=== PATIENT | female | born 1960 | race Caucasian/White ===

== ENCOUNTER 2020-11-06 08:31 | Emergency (ER) | payer OTHER, SELFPAY ==
--- NOTE | ~2020-11-06 | XR_ITS ---
EXAMINATION: XR CHEST CLINICAL INFORMATION: Shortness of breath COMPARISON: None TECHNIQUE: 2 views of the chest were obtained. FINDINGS: There is subsegmental atelectasis versus scarring left anterior lateral base at the inferior lingula. The lungs otherwise clear. There is no pneumothorax, pleural reaction, other air space opacities, or effusion. The heart is normal in size. The vascularity is normal. The hilar and mediastinal contours and bony structures are unremarkable. XR/XR chest 2V IMPRESSION: 1. Atelectasis versus scarring inferior lingula left anterior lateral base. 2. Heart size normal. Vascularity normal. No effusion.
[2020-11-06 08:41] VITALS: BP 140/82; PULSE 70; O2SAT 95
[2020-11-06 08:53] VITALS: BP 130/61; PULSE 68; TEMP -14.4; TEMP 6; O2SAT 93; BMI 23.8
[2020-11-06] MEDS: Albuterol Sulfate (0.083%) 2.5 MG/3 ML VIAL.NEB 5 MG INHALE (10:48)
[2020-11-06] MEDS: Albuterol/Iprat 2.5/0.5MG 3 ML AMPUL.NEB INHALE (10:48)
[2020-11-06 10:50] VITALS: PULSE 64; O2SAT 96
[2020-11-06] MEDS: methylPREDNISolone Sod Succ 125 MG/2 ML VIAL IVPUSH (10:52)
[2020-11-06] MEDS: guaiFEN/Codeine SF 200/20/10ML 10 ML LIQUID PO (10:52)
[2020-11-06] MEDS: Magnesium Sulfate/H2O 2 GM/50 ML PIGGYBACK IV (10:52)
[2020-11-06 10:56] VITALS: BP 126/88; PULSE 62; O2SAT 94
[2020-11-06 11:00] LABS: MANUAL DIFF FLAG NO
[2020-11-06 11:08] LABS: Basophils Absolute Auto 0.1 X10*3/uL (0.0-0.2); Basophils Percent Auto 0.5 % (0-2); Eosinophils Absolute Auto 1.3 X10*3/uL (0.0-0.4); Eosinophils Percent Auto 10.9 % (0-4); Hematocrit 40.6 % (37-47); Hemoglobin 13.5 g/dl (12.0-16.0); Imm Gran Abs Auto 0.04 X10*3/uL (0.00-0.03); Imm Gran Pct Auto 0.3 % (0.0-0.4); Lymphocytes Absolute Auto 1.3 X10*3/uL (1.2-4.9); Lymphocytes Percent Auto 11.4 % (20-40); Mean Corpuscular HGB Conc 33.3 g/dl (31.0-35.0); Mean Corpuscular Hemoglobin 29.7 pg (27.0-33.0); Mean Corpuscular Volume 89.2 fL (80-98); Mean Platelet Volume 8.5 fL (9.4-12.3); Monocytes Absolute Auto 0.7 X10*3/uL (0.1-1.2); Monocytes Percent Auto 6.3 % (2-11); Neutrophils Absolute Auto 8.1 X10*3/uL (2.0-8.3); Neutrophils Percent Auto 70.6 % (45-73); Platelet Count 295 X10*3/uL (160-400); Red Blood Count 4.55 X10*6/uL (4.20-5.50); White Blood Count 11.5 X10*3/uL (4.8-10.8)
[2020-11-06 11:28] LABS: Anion Gap 12 (12-20); Blood Urea Nitrogen 14 mg/dL (9-16); Calcium 9.5 mg/dL (8.4-10.2); Carbon Dioxide 25 mmol/L (22-29); Chloride 107 mmol/L (96-108); Creatinine Clr Calc Pharmacy 69.3; Estimated Glomerular Filt Rate > 60; Glucose Random 114 mg/dL (60-115); Potassium 4.1 mmol/L (3.3-5.1); Sodium 140 mmol/L (135-145)
--- NOTE | 2020-11-06 11:57 | ED_ITS ---
HPI - SOB/Dyspnea General Chief Complaint: Dyspnea Stated Complaint: difficulty breathing Time Seen by Provider: 11/06/20 10:11 Source: patient Mode of arrival: ambulatory Limitations: no limitations History of Present Illness HPI Narrative: Patient history of asthma/COPD ex-smoker been feeling short of breath for long time getting worse does not have any inhaler at this time using nebulizer treatment without much relief no fever no chills cough mostly dry or slight mucopurulent phlegm no chest pain patient was saturating 93% on arrival at room air Related Data Previous Rx's Medication Instructions Recorded albuterol sulfate 90 mcg/actuation 2 puff INHALATION Q4-6H PRN #8.5 g 11/06/20 aerosol inhaler (Proventil HFA) codeine 10 mg-guaifenesin 100 mg/5 10 ml PO Q4-6H PRN #237 ml 11/06/20 mL oral liquid doxycycline hyclate 100 mg tablet 100 mg PO BID #20 tab 11/06/20 prednisone 20 mg tablet 40 mg PO DAILY #10 tab 11/06/20 Allergies Allergy/AdvReac Type Severity Reaction Status Date / Time aspirin Allergy Unknown Verified 11/06/20 09:01 fluoxetine [From Prozac] Allergy Unknown Verified 11/06/20 09:01 Review of Systems Review of Systems: Yes all other systems are reviewed and are negative PMFSH Past Medical History Medical History Asthma Depression Heart failure Social History Social History Advance Directives: No Advance Directives Information Provided: No Physical Exam Vital Signs: Vital Signs: Last Vital Signs Temp 6 F L 11/06/20 08:53 Pulse 62 11/06/20 10:56 BP 126/88 11/06/20 10:56 Pulse Ox 94 11/06/20 10:56 Oxygen Flow Rate 2 11/06/20 08:53 Body Mass Index 23.8 Appearance: Alert. Oriented X3. No acute distress. Eyes: No pallor or icterus ENT: Pharynx normal. Oral Mucosa moist Neck: Normal inspection. Neck supple. CVS: Normal heart rate and rhythm. Pulses normal. Respiratory: No respiratory distress. Equal air entry bilateral, frequent cough bilateral wheezing no crackles Abdomen: Soft and nontender. Bowel sounds are present, no mass palpable, no CVA tenderness Skin: Skin warm and dry. Normal skin color. Normal skin turgor. Extremities: No lower extremity edema. No calf tenderness Neuro: Oriented X 3. MDM - SOB/Dyspnea MDM Narrative Medical decision making narrative: Patient chronic bronchitis/asthma/COPD comes with similar complaints for increased shortness of breath and cough saturating 93-94% on room air chest x-ray negative labs stable discharge patient home on prednisone albuterol inhaler and doxycycline Differential Diagnosis Differential diagnosis: Likely acute exacerbation of chronic obstructive airways disease and asthma with exacerbation Lab Data Attestation: I reviewed the patient's lab results. Result diagrams: 11/06/20 10:46 11/06/20 10:46 Labs: Lab Results 11/06/20 11/06/20 Range/Units 10:46 10:46 WBC 11.5 H (4.8-10.8) X10*3/uL RBC 4.55 (4.20-5.50) X10*6/uL Hgb 13.5 (12.0-16.0) g/dl Hct 40.6 (37-47) % MCV 89.2 (80-98) fL MCH 29.7 (27.0-33.0) pg MCHC 33.3 (31.0-35.0) g/dl RDW 13.0 (11.0-16.0) % Plt Count 295 (160-400) X10*3/uL MPV 8.5 L (9.4-12.3) fL Immature Gran % (Auto) 0.3 (0.0-0.4) % Neut % (Auto) 70.6 (45-73) % Lymph % (Auto) 11.4 L (20-40) % [place] % (Auto) 6.3 (2-11) % Eos % (Auto) 10.9 H (0-4) % Baso % (Auto) 0.5 (0-2) % Lymph # (Auto) 1.3 (1.2-4.9) X10*3/uL [place] # (Auto) 0.7 (0.1-1.2) X10*3/uL Eos # (Auto) 1.3 H (0.0-0.4) X10*3/uL Baso # (Auto) 0.1 (0.0-0.2) X10*3/uL Abs Immat Gran (auto) 0.04 H (0.00-0.03) X10*3/uL Absolute Neuts (auto) 8.1 (2.0-8.3) X10*3/uL Absolute Nucleated RBC 0.000 (0.0-0.012) X10*3/uL Nucleated RBC % (auto) 0.0 (0.0-0.2) /100WBC Sodium 140 (135-145) mmol/L Potassium 4.1 (3.3-5.1) mmol/L Chloride 107 (96-108) mmol/L Carbon Dioxide 25 (22-29) mmol/L Anion Gap 12 (12-20) BUN 14 (9-16) mg/dL Creatinine 0.70 (0.5-1.4) mg/dL Estim Creat Clear Calc 69.3 Estimated GFR > 60 Random Glucose 114 (60-115) mg/dL Calcium 9.5 (8.4-10.2) mg/dL Discharge Plan Discharge Clinical Impression: Chronic asthmatic bronchitis Patient Disposition: Home, Self-Care Instructions: Chronic Bronchitis (ED) Additional Instructions: Take medication as prescribed and follow with PCP Prescriptions: New albuterol sulfate [Proventil HFA] 90 mcg/actuation HFA aerosol inhaler 2 puff inhalation Q4-6H PRN (Reason: shortness of breath or wheezing) Qty: 8.5 RF: 0 prednisone 20 mg tablet 40 mg PO DAILY Qty: 10 RF: 0 doxycycline hyclate 100 mg tablet 100 mg PO BID Qty: 20 RF: 0 codeine-guaifenesin 10-100 mg/5 mL liquid 10 ml PO Q4-6H PRN (Reason: cough) Qty: 237 RF: 0
== END 2020-11-06 12:51 | disposition home or self-care (01) ==
PROVIDERS: Emergency Provider Internal Medicine
DX: J44.9 Chronic obstructive pulmonary disease, unspecified (principal)
CPT/HCPCS: 36415; 71046; 80048; 85025; 94640; 94644; 96365; 96375; 99283; 99284; J2930; J3475

== ENCOUNTER 2023-07-06 22:14 | Inpatient (IN) | payer MEDICAID, SELFPAY ==
--- NOTE | ~2023-07-06 | XR_ITS ---
EXAMINATION: XR CHEST CLINICAL INFORMATION: Shortness of breath and wheezing. Rule out pneumonia. COMPARISON: None available. TECHNIQUE: Frontal view of the chest was obtained. FINDINGS: The cardiac and mediastinal contours are normal. There is scarring or subsegmental atelectasis at the left lung base similar to 2020 exam. The lungs are otherwise clear. No pleural effusion or pneumothorax. Normal bony structures. XR/XR chest 1V IMPRESSION: Scarring or subsegmental atelectasis at the left lung base.
[2023-07-06 22:25] VITALS: BP 123/88; PULSE 108; O2SAT 100
[2023-07-06 22:32] VITALS: BP 112/73; PULSE 109; RESP 22; TEMP 36.6; O2SAT 100; BMI 31.0
--- NOTE | 2023-07-06 22:37 | ED.SOB ---
HPI - SOB/Dyspnea General Chief Complaint: Asthma Stated Complaint: SOB x2 days, hx of asthma, 88% RA, 100 on duo neb Time Seen by Provider: 07/06/23 22:29 Source: patient Mode of arrival: EMS Limitations: no limitations History of Present Illness HPI Narrative: 63-year-old female with a history of asthma/COPD who presents emergency department for evaluation of shortness of breath 2-3 days. She states she has had a very persistent cough productive of clear to sharma sputum. She is felt short of breath and has had dyspnea on exertion. She has had chills but no fever. She complained of nausea but no vomiting or diarrhea. She states that she uses her Symbicort twice a day but ran out of this medication. She was using her albuterol inhaler 4 times a day and throughout the day yesterday she used her nebulizer more frequently than usual without any relief for symptoms. Patient got very short of breath and called an ambulance. According to paramedics patient's O2 saturation was 76-88% on room air. Patient was given a DuoNeb EN route and placed on 6 L of oxygen via nasal cannula with O2 saturation improving to 100%. Patient initially refused an IV by the paramedics. Related Data Previous Rx's ?Medication ?Instructions ?Recorded albuterol sulfate 90 mcg/actuation 2 puff inhalation Q4-6H PRN 11/06/20 aerosol inhaler (Proventil HFA) shortness of breath or wheezing #8.5 grams codeine 10 mg-guaifenesin 100 mg/5 10 ml PO Q4-6H PRN cough #237 mL 11/06/20 mL oral liquid doxycycline hyclate 100 mg tablet 100 mg PO BID #20 tabs 11/06/20 duloxetine 60 mg capsule,delayed 60 mg PO DAILY #10 caps 11/06/20 release (Cymbalta) metoprolol succinate 100 mg 100 mg PO DAILY #10 tabs 11/06/20 tablet,extended release 24 hr prednisone 20 mg tablet 40 mg (2 x 20 mg) PO DAILY #10 tabs 11/06/20 Allergies Allergy/AdvReac Type Severity Reaction Status Date / Time aspirin Allergy Unknown Verified 07/06/23 22:36 fluoxetine [From Prozac] Allergy Unknown Verified 07/06/23 22:36 Review of Systems Review of Systems: Yes all other systems are reviewed and are negative [facility] Past Medical History [facility] Narrative: Social history: He denies tobacco, alcohol or drug use Medical History Asthma Depression Heart failure Social History Social History Smoked in Last 30 Days: No Use of substances other than those prescribed or required for medical reasons: No Advance Directives: No Advance Directives Information Provided: Yes Physical Exam Vital Signs: Vital Signs: Last Vital Signs Temp 98 F 07/06/23 22:32 Pulse 116 H 07/07/23 00:15 Resp 16 07/07/23 00:15 BP 131/69 07/07/23 00:15 Pulse Ox 94 07/07/23 00:15 O2 Del Method Room Air 07/07/23 00:15 BMI result Body Mass Index 31.0 Vital signs revealed an elevated heart rate of 116 and O2 saturation of 94% on oxygen Exam: General: Patient appeared tachypneic , dyspneic with a very persistent, dry sounding cough Head: Normocephalic, atraumatic EENT: PERRL, Lids normal, sclera normal, conjunctiva normal, nose normal , ears normal, throat without erythema or exudates Neck: Supple, no adenopathy Lung: Diffuse wheezing and rhonchi with good inspiratory and expiratory flow Chest: symmetric movement, nontender Heart: regular rate and rhythm, normal S1, S2 no murmurs or rubs Abdomen: soft, non-tender, nondistended, normal bowel sounds Back: no vertebral tenderness, no CVAT Extremities: no deformities, moves all extremities symmetrically Neuro: Awake, alert, oriented, normal speech, cranial nerves intact, moves all extremities symmetrically Medications Administered Discontinued Medications Generic Name Dose Route Start Last Admin Trade Name Freq PRN Reason Stop Dose Admin Albuterol Sulfate 7.5 mg/ 10 mg 07/06/23 22:37 07/06/23 22:45 Albuterol Sulfate 2.5 mg INHALE 07/06/23 22:38 10 mg ONCE ONE Administration Albuterol Sulfate 2.5 mg/ 0 mg 07/06/23 23:08 07/06/23 23:09 Albuterol/Ipratropium 3 ml INHALE 07/06/23 23:09 5 dose ONCE ONE Administration Sodium Chloride 1,000 mls @ 999 mls/hr 07/06/23 22:31 07/06/23 23:30 Ns IV 07/06/23 23:31 999 mls/hr .Q1H1M STA Administration Magnesium Sulfate 2 gm in 50 mls @ 25 mls/hr 07/06/23 22:31 07/06/23 23:30 Magnesium Sulfate/H2o IV 07/07/23 00:30 25 mls/hr ONCE ONE Administration Methylprednisolone Sodium Succinate 125 mg 07/06/23 22:31 07/06/23 23:30 Methylprednisolone Sod Succ 125 Mg/2 Ml Vial IVPUSH 07/06/23 22:32 125 mg ONCE ONE Administration Medical Decision Making Medical Decision Making MDM Narrative: 63-year-old female with a history of asthma/COPD who presents emergency department for evaluation of shortness of breath 2-3 days. She states she has had a very persistent cough productive of clear to sharma sputum, has been using her albuterol inhaler nebulizer treatments very frequently with no relief for symptoms. She did run out of her [email or web address]. Patient was found to be hypoxic by paramedics with an O2 saturation of 76-88% on room air which did improve with 6 L of oxygen via nasal cannula. She was given a DuoNeb EN route. Patient's vital signs here revealed that she was afebrile, she did have an elevated heart rate patient's lung exam revealed diffuse wheezing, rhonchi with good inspiratory and expiratory flow. Differential diagnosis: ?Includes but is not limited to asthma exacerbation, chronic lung disease exacerbation, pneumonia, bronchitis, anemia, electrolyte abnormalities Following evaluation was ordered:CBC, CMP, lactic acid, lipase, BNP, magnesium, PT/INR, PTT, blood cultures x2, COVID-19, influenza, RSV, chest x-ray one view Patient was initially treated with the following: Albuterol 10 mg nebulizer, magnesium 2 g IV, Solu-Medrol 125 mg IV, Tylenol 975 mg orally. Course: 01:41 My independent interpretation patient's laboratory evaluation is as follows: CBC was normal. CMP revealed an elevated ALT of 34, elevated alk-phos of 147. Lipase was negative. COVID-19, influenza and RSV were negative. Chest x-ray revealed no acute infiltrates. Patient's presentation is consistent with an asthma exacerbation/exacerbation of her chronic lung disease. Patient required 2nd nebulizer treatment albuterol 5 mg with 2.5 mg of ipratropium. Patient remains on 4 L of oxygen via OxyMask I I did discuss admission over tiger text with the covering hospitalist. Lab Data MDM Lab Attestation statement: I reviewed the patient's lab results. 07/06/23 23:01 07/06/23 23:01 Labs: Lab Results 07/06/23 Range/Units 23:01 WBC 8.1 (4.8-10.8) X10*3/uL RBC 4.63 (4.20-5.50) X10*6/uL Hgb 12.3 (12.0-16.0) g/dl Hct 38.0 (37.0-47.0) % MCV 82.1 (80.0-98.0) fL MCH 26.6 L (27.0-33.0) pg MCHC 32.4 (31.0-35.0) g/dl RDW 14.9 (11.0-16.0) % Plt Count 317 (160-400) X10*3/uL MPV 8.4 L (9.4-12.3) fL Immature Gran % (Auto) 0.2 (0.0-0.4) % Neut % (Auto) 52.6 (45-73) % Lymph % (Auto) 23.4 (20-40) % [place] % (Auto) 7.5 (2-11) % Eos % (Auto) 15.8 H (0-4) % Baso % (Auto) 0.5 (0-2) % Lymph # (Auto) 1.9 (1.2-4.9) X10*3/uL [place] # (Auto) 0.6 (0.1-1.2) X10*3/uL Eos # (Auto) 1.3 H (0.0-0.4) X10*3/uL Baso # (Auto) 0.0 (0.0-0.2) X10*3/uL Abs Immat Gran (auto) 0.02 (0.00-0.03) X10*3/uL Absolute Neuts (auto) 4.2 (2.0-8.3) x10*3/uL Absolute Nucleated RBC 0.000 (0.0-0.012) X10*3/uL Nucleated RBC % (auto) 0.0 (0.0-0.2) /100WBC PT 12.2 (11.1-13.3) SEC INR 1.0 (0.9-1.1) APTT 44.6 H (26.0-36.8) SEC Sodium 141 (135-145) mmol/L Potassium 3.5 (3.3-5.1) mmol/L Chloride 105 (96-108) mmol/L Carbon Dioxide 27 (22-29) mmol/L Anion Gap 13 (12-20) BUN 15 (9-16) mg/dL Creatinine 0.66 (0.5-1.4) mg/dL Estim Creat Clear Calc 82.5 Estimated GFR > 60 Random Glucose 99 (60-115) mg/dL Lactic Acid 1.3 (0.5-2.0) mmol/L Calcium 9.5 (8.4-10.2) mg/dL Magnesium 2.2 (1.6-2.6) mg/dL Total Bilirubin 0.3 (0.0-1.0) mg/dL AST 22 (5-31) U/L ALT 34 H (0-31) U/L Alkaline Phosphatase 147 H (39-117) U/L B-Natriuretic Peptide < 10 (<100) pg/mL Total Protein 7.6 (6.5-8.0) g/dL Albumin 4.0 (3.5-5.0) g/dL Lipase 22 (8-78) U/L Influenza Type A (PCR) NEGATIVE (Negative) Influenza Type B (PCR) NEGATIVE (Negative) RSV RNA Qual (PCR) NEGATIVE (Negative) SARS-CoV-2 RNA (RT-PCR) NEGATIVE (Negative) Independent Interpretation I performed an independent interpretation of an: Plain X-Ray Interpretation: My independent interpretation patient's laboratory evaluation as follows: No acute infiltrates, no acute disease Radiology Impression Discussion of test interpretation with radiology: I have reviewed the radiologist's reading. Radiologist Impression: XR chest 1V IMPRESSION: Scarring or subsegmental atelectasis at the left lung base. Dictated By: Tanesha Armenta MD Critical Care Time Critical Care Time Critical Care Time: Yes Total Critical Care Time: 45 Attestation: Critical Care: The patient was critically ill with a high probability of imminent or life threatening deterioration. I spent greater than 30 minutes of discontinuous time evaluating the patient,delivering critical care at the bedside, discussing and evaluating pertinent data with consultants. Critical care time does not include time spent performing separately billable procedures or teaching. Total time spent performing critical care was 45 minutes. Discharge Plan Discharge Clinical Impression: Asthma with acute exacerbation Patient Disposition: Admitted As Inpatient Prescriptions: No Action albuterol sulfate [Proventil HFA] 90 mcg/actuation HFA aerosol inhaler 2 puff inhalation Q4-6H PRN (Reason: shortness of breath or wheezing) Qty: 8.5 0RF prednisone 20 mg tablet 40 mg PO DAILY Qty: 10 0RF doxycycline hyclate 100 mg tablet 100 mg PO BID Qty: 20 0RF codeine-guaifenesin 10-100 mg/5 mL liquid 10 ml PO Q4-6H PRN (Reason: cough) Qty: 237 0RF duloxetine [Cymbalta] 60 mg capsule,delayed release(DR/EC) 60 mg PO DAILY Qty: 10 0RF metoprolol succinate 100 mg tablet extended release 24 hr 100 mg PO DAILY Qty: 10 0RF Print Language: Serbian
[2023-07-06] MEDS: Albuterol Sulfate 7.5 MG, Albuterol Sulfate (0.083%) 2.5 MG 10 MG INHALE (22:45)
[2023-07-06 22:46] VITALS: PULSE 107; RESP 26; O2SAT 97
--- NOTE | 2023-07-06 22:46 | PC.NURSE ---
Pt refusing 02, requesting treatment. Provider BRIAN made aware. Provider with pt. Pt agreeable to 02 now. RT called. RT currently with pt, pt receiving tx. Plan of care ongoing.
[2023-07-06 23:09] LABS: MANUAL DIFF FLAG NO
[2023-07-06] MEDS: Albuterol Sulfate 2.5 MG, Albuterol/Iprat 2.5/0.5MG 3 ML 3 ML INHALE (23:09)
[2023-07-06 23:12] LABS: Basophils Percent Auto 0.5 % (0-2); Eosinophils Absolute Auto 1.3 X10*3/uL (0.0-0.4); Eosinophils Percent Auto 15.8 % (0-4); Hemoglobin 12.3 g/dl (12.0-16.0); Imm Gran Abs Auto 0.02 X10*3/uL (0.00-0.03); Imm Gran Pct Auto 0.2 % (0.0-0.4); Lymphocytes Absolute Auto 1.9 X10*3/uL (1.2-4.9); Lymphocytes Percent Auto 23.4 % (20-40); Mean Corpuscular HGB Conc 32.4 g/dl (31.0-35.0); Mean Corpuscular Hemoglobin 26.6 pg (27.0-33.0); Mean Corpuscular Volume 82.1 fL (80.0-98.0); Mean Platelet Volume 8.4 fL (9.4-12.3); Monocytes Absolute Auto 0.6 X10*3/uL (0.1-1.2); Monocytes Percent Auto 7.5 % (2-11); Neutrophils Absolute Auto 4.2 x10*3/uL (2.0-8.3); Neutrophils Percent Auto 52.6 % (45-73); Platelet Count 317 X10*3/uL (160-400); Red Blood Count 4.63 X10*6/uL (4.20-5.50); Red Cell Distribution Width 14.9 % (11.0-16.0); White Blood Count 8.1 X10*3/uL (4.8-10.8)
[2023-07-06 23:16] LABS: Prothrombin Time 12.2 SEC (11.1-13.3)
[2023-07-06 23:19] LABS: Partial Thromboplastin Time 44.6 SEC (26.0-36.8)
[2023-07-06 23:21] LABS: Lactic Acid 1.3 mmol/L (0.5-2.0)
[2023-07-06 23:25] LABS: Alanine Aminotransferase 34 U/L (0-31); Alkaline Phosphatase 147 U/L (39-117); Anion Gap 13 (12-20); Aspartate Amino Transferase 22 U/L (5-31); Bilirubin Total 0.3 mg/dL (0.0-1.0); Blood Urea Nitrogen 15 mg/dL (9-16); Calcium 9.5 mg/dL (8.4-10.2); Carbon Dioxide 27 mmol/L (22-29); Chloride 105 mmol/L (96-108); Creatinine Clr Calc Pharmacy 82.5; Estimated Glomerular Filt Rate > 60; Glucose Random 99 mg/dL (60-115); Lipase 22 U/L (8-78); Magnesium 2.2 mg/dL (1.6-2.6); Potassium 3.5 mmol/L (3.3-5.1); Sodium 141 mmol/L (135-145); Total Protein 7.6 g/dL (6.5-8.0)
[2023-07-06] MEDS: 0.9 % Sodium Chloride 1,000 ML 999 ML IV (23:30)
[2023-07-06] MEDS: Magnesium Sulfate/H2O 2 GM/50 ML PIGGYBACK IV (23:30)
[2023-07-06] MEDS: methylPREDNISolone Sod Succ 125 MG/2 ML VIAL IVPUSH (23:30)
--- NOTE | 2023-07-06 23:39 | PC.NURSE ---
Unable to obtain IV access. english as a second language instructor to attempt. plan of care ongoing.
[2023-07-06 23:49] LABS: Influenza A PCR NEGATIVE (Negative); Influenza B PCR NEGATIVE (Negative); Resp Syncy Virus RNA Qual PCR NEGATIVE (Negative); SARS COV2 PCR INHOUSE NEGATIVE (Negative)
[2023-07-07] VITALS (16 sets, daily range): BP systolic 103–143; BP diastolic 58–74; PULSE 88–116; RESP 6–25; TEMP 36.4–37.1; O2SAT 86–100; BMI 29.8
--- NOTE | 2023-07-07 | ECG_ITS ---
Test Reason : history of atrial fibrillation Blood Pressure : / mmHG Vent. Rate : 097 BPM Atrial Rate : 097 BPM P-R Int : 154 ms QRS Dur : 084 ms QT Int : 376 ms P-R-T Axes : 054 004 024 degrees QTc Int : 477 ms Normal sinus rhythm Low voltage QRS Inferior infarct , age undetermined Cannot rule out Anterior infarct , age undetermined Abnormal ECG No previous ECGs available Referred By: Samreen Holloway Electronically Signed By:ELISABETH CASTELLANOS
[2023-07-07 00:42] LABS: B Type Natriuretic Peptide < 10 pg/mL (<100)
[2023-07-07] MEDS: Acetaminophen 325 MG TABLET 975 MG PO ×2 (01:38→22:24)
--- NOTE | 2023-07-07 01:43 | PC.NURSE ---
Pt medicated per may. Plan of care ongoing.
[2023-07-07] MEDS: Albuterol Sulfate 5 MG, Albuterol Sulfate (0.083%) 2.5 MG 7.5 MG INHALE (01:45)
--- NOTE | 2023-07-07 05:40 | PM.IMHP ---
History of Present Illness Date of Service: 07/07/23 Attending physician on admission: Samreen Holloway Chief Complaint: Shortness on breath Ree Harris is a 63 years old woman with past medical history significant for asthma, atrial fibrillation on chronic anticoagulation with Eliquis, depression and CHF was brought to the emergency department via EMS due to worsening shortness of breath over the last 2 days later with productive cough greenish sputum and wheezing. She denied chest pain, fevers chills. She did not report any gastrointestinal or genitourinary symptoms. She uses Spiriva and Symbicort (ran out of it recently). Per EMS patient was found to have O2 sats of 76-88% on room air and was given a breathing treatment with DuoNeb was placed on a non-rebreather mask. Denies tobacco smoking, alcohol abuse or illicit drug use. In the ED, she was found to have tachypnea and mild degree of tachycardia. She is currently requiring 4 L/min supplemental oxygen via mask. Blood workup showed no leukocytosis. There is eosinophilia. Hemoglobin and platelets are normal. CMP is normal except for slight elevation of ALT and alk-phos. BNP is normal. Viral testing for influenza, COVID-19 and RSV is negative. CXR shows scarring or subsegmental atelectasis of the left lower base. Review of Systems Review of Systems: All 12 systems were reviewed and normal except as noted in HPI. FORMERLY [facility], [facility] Medical History (Updated 07/07/23 @ 06:38 by Samreen Holloway MD) GERD (gastroesophageal reflux disease) Atrial fibrillation Essential hypertension Depression Heart failure Asthma Social History Smoked in Last 30 Days: No Use of substances other than those prescribed or required for medical reasons: No Advance Directives: No Advance Directives Information Provided: Yes Meds Allergies Allergy/AdvReac Type Severity Reaction Status Date / Time aspirin Allergy Unknown Verified 07/06/23 22:36 fluoxetine [From Prozac] Allergy Unknown Verified 07/06/23 22:36 Active Medications: Current Medications Acetaminophen (Acetaminophen 325 Mg Tablet) 975 mg PO Q6H PRN PRN Reason: Pain, Mild (Pain Scale 1-3) Albuterol Sulfate (Albuterol Sulfate 90 Mcg 8 Gm Inhaler) 4 puff INHALE RQ4H WHILE AWAKE JARROD Methylprednisolone Sodium Succinate (Methylprednisolone Sod Succ 40 Mg/Ml Vial) 40 mg IVPUSH DAILY [facility] Sodium Chloride (0.9 % Sodium Chloride Flush 3 Ml Syringe) 3 ml IVFLUSH QSHIFT [facility] Home Medications ?Medication ?Instructions ?Recorded ?Confirmed ?Last Taken ?Type apixaban 5 mg tablet (Eliquis) 5 mg PO BID 07/07/23 07/07/23 Unknown History budesonide-formoterol HFA 160 2 puff inhalation BID 07/07/23 07/07/23 Unknown History mcg-4.5 mcg/actuation aerosol inhaler (Symbicort) lisinopril 2.5 mg tablet 2.5 mg PO DAILY 07/07/23 07/07/23 Unknown History omeprazole 40 mg capsule,delayed 40 mg PO DAILY 07/07/23 07/07/23 Unknown History release tiotropium bromide 18 mcg capsule 1 cap inhalation DAILY 07/07/23 07/07/23 Unknown History with inhalation device (Spiriva with HandiHaler) tizanidine 4 mg tablet 4 mg PO TID 07/07/23 07/07/23 Unknown History Physical Exam Vital Signs and Narrative: Vital Signs: Last Vital Signs Temp 98.7 F 07/07/23 02:14 Pulse 101 H 07/07/23 04:06 Resp 6 L 07/07/23 04:06 BP 133/66 07/07/23 04:06 Pulse Ox 97 07/07/23 04:06 O2 Del Method Room Air 07/07/23 04:06 O2 Flow Rate 3 07/07/23 02:14 BMI result Body Mass Index 31.0 Constitutional - Awake and Alert, No apparent distress. Facemask in place. HEENT - Pupils equally round. Normal sclerae. Heart - S1S2, RRR. Lungs - Normal lung expansion, Normal respiratory effort, No respiratory distress. Tachypnea. Bilateral end expiratory wheezes. Abdomen - NT / ND; +BS; No rebound or guarding Extremities - no calf tenderness bilaterally, no swelling Musculoskeletal - Normal inspection, normal ROM Skin - Warm/Dry Neurological - Alert & oriented x3. No focal weakness. Normal speech. Psychological - Appropriate affect Results Labs 07/06/23 23:01 07/06/23 23:01 Labs: Laboratory Results - last 24 hr 07/06/23 23:01 MCV 82.1 MCH 26.6 L MCHC 32.4 RDW 14.9 Plt Count 317 MPV 8.4 L Immature Gran % (Auto) 0.2 Neut % (Auto) 52.6 Lymph % (Auto) 23.4 [place] % (Auto) 7.5 Eos % (Auto) 15.8 H Baso % (Auto) 0.5 Lymph # (Auto) 1.9 [place] # (Auto) 0.6 Eos # (Auto) 1.3 H Baso # (Auto) 0.0 Abs Immat Gran (auto) 0.02 Absolute Neuts (auto) 4.2 Absolute Nucleated RBC 0.000 Nucleated RBC % (auto) 0.0 PT 12.2 INR 1.0 APTT 44.6 H Anion Gap 13 Estim Creat Clear Calc 82.5 Estimated GFR > 60 Random Glucose 99 Lactic Acid 1.3 Calcium 9.5 Magnesium 2.2 Total Bilirubin 0.3 AST 22 ALT 34 H Alkaline Phosphatase 147 H B-Natriuretic Peptide < 10 Total Protein 7.6 Albumin 4.0 Lipase 22 Influenza Type A (PCR) NEGATIVE Influenza Type B (PCR) NEGATIVE RSV RNA Qual (PCR) NEGATIVE SARS-CoV-2 RNA (RT-PCR) NEGATIVE Imaging Radiologist's Impressions: Impressions Chest X-Ray 07/06/23 22:42 IMPRESSION: Scarring or subsegmental atelectasis at the left lung base. Assessment and Plan (1) Asthma with acute exacerbation: Qualifiers: Asthma severity: severe Asthma persistence: persistent Qualified Code(s): J45.51 - Severe persistent asthma with (acute) exacerbation Status: Acute (2) Hypoxic respiratory failure: Qualifiers: Chronicity: acute Qualified Code(s): J96.01 - Acute respiratory failure with hypoxia Status: Acute (3) Essential hypertension: Status: Acute (4) Atrial fibrillation: Qualifiers: Atrial fibrillation type: unspecified Qualified Code(s): I48.91 - Unspecified atrial fibrillation Status: Acute (5) GERD (gastroesophageal reflux disease): Qualifiers: Esophagitis presence: without esophagitis Qualified Code(s): K21.9 - Gastro-esophageal reflux disease without esophagitis Status: Acute Plan Ree Harris is a 63 years old woman admitted with: Hypoxic respiratory failure secondary to acute exacerbation of bronchial asthma (requiring supplemental oxygen). Admit to hospitalist service. Telemetry. Pulse oximetry. Supplemental oxygen to keep O2 sats > 90%. Continue bronchodilator therapy. Solu-Medrol 40 mg IV daily. Continue montelukast. Atrial fibrillation. Telemetry. Continue Eliquis and metoprolol. Essential hypertension. Continue metoprolol and lisinopril. History of CHF. Not decompensated. Continue furosemide. Depression. Continue duloxetine. GERD. Continue omeprazole. DVT prophylaxis: Rafiq Code status: Full Patient will need hospitalization for at least 2 midnights for hypoxic respiratory failure secondary to bronchial asthma treatment with supplemental oxygen, bronchodilator therapy and IV steroids. She will also require close monitoring of vital signs. Quality Stroke Does the patient have a stroke diagnosis?: No VTE Prior VTE?: No VTE Risk Level:: Medical - moderate - high VTE Device Contraindication: Treatment Not Indicated VTE Drug Contraindication: N/A - Med Ordered
[2023-07-07 06:24] LABS: Basophils Percent Auto 0.4 % (0-2); Eosinophils Percent Auto 0.3 % (0-4); Hematocrit 35.1 % (37.0-47.0); Hemoglobin 11.3 g/dl (12.0-16.0); Imm Gran Abs Auto 0.03 X10*3/uL (0.00-0.03); Imm Gran Pct Auto 0.4 % (0.0-0.4); Lymphocytes Absolute Auto 0.6 X10*3/uL (1.2-4.9); Lymphocytes Percent Auto 7.6 % (20-40); MANUAL DIFF FLAG SCAN; Mean Corpuscular HGB Conc 32.2 g/dl (31.0-35.0); Mean Corpuscular Hemoglobin 27.1 pg (27.0-33.0); Mean Corpuscular Volume 84.2 fL (80.0-98.0); Mean Platelet Volume 8.3 fL (9.4-12.3); Monocytes Absolute Auto 0.1 X10*3/uL (0.1-1.2); Monocytes Percent Auto 0.6 % (2-11); Neutrophils Percent Auto 90.7 % (45-73); Platelet Count 306 X10*3/uL (160-400); Red Blood Count 4.17 X10*6/uL (4.20-5.50); SCAN SMEAR FLAG 1; White Blood Count 7.8 X10*3/uL (4.8-10.8)
[2023-07-07 06:38] LABS: Anion Gap 14 (12-20); Blood Urea Nitrogen 15 mg/dL (9-16); Calcium 8.9 mg/dL (8.4-10.2); Carbon Dioxide 23 mmol/L (22-29); Chloride 107 mmol/L (96-108); Creatinine Clr Calc Pharmacy 71.7; Estimated Glomerular Filt Rate > 60; Glucose Random 146 mg/dL (60-115); Potassium 3.8 mmol/L (3.3-5.1); Sodium 140 mmol/L (135-145)
--- NOTE | 2023-07-07 06:41 | PC.NURSE ---
Pt requesting tx. RT called RT marleen with pt. Plan of care ongoing.
[2023-07-07 06:42] LABS: SLIDE REVIEW VERIFIED
--- NOTE | 2023-07-07 07:09 | MHC.EDTECH ---
pt refused to sit and stay still for the ekg. says shes going to have an asthma attack if she does. shes standing at bedside.
--- NOTE | 2023-07-07 08:10 | PHA.MEDREC ---
Pharmacy Consult ? Medication Reconciliation Pharmacy has completed the medication reconciliation.
--- NOTE | 2023-07-07 08:49 | MHC.CM.PN ---
CM met with Patient in the ED, at bedside. Patient lives in a house with her Son and she required no services nor DME [facility]. Home/self care is the goal and CM has initiated and will follow for dc planning. Patient's Daughter/Maye @ [phone] is the HCP and the PCP is Dr. Carli Chamberlain in [place](initial appointment is 08/09/2023). Patient lives in [place] but works in [place] as a [employer].
--- NOTE | 2023-07-07 09:35 | PC.NURSE ---
HOSP NIKKI JEFFERSON) AT BEDSIDE. PT AWARE OF PLAN OF CARE. 02 DECREASED FROM 5 L/M TO 3L/M. WILL CONTINUE TO MONITOR.
[2023-07-07] MEDS: Omeprazole 40 MG CAPSULE.DR PO (10:18)
[2023-07-07] MEDS: Metoprolol Succinate ER 100 MG TAB.ER.24H PO (10:18)
[2023-07-07] MEDS: lisinopriL 2.5 MG TABLET PO (10:19)
[2023-07-07] MEDS: Apixaban 5 MG TABLET PO ×2 (10:24→22:13)
[2023-07-07] MEDS: DULoxetine HCl 60 MG CAPSULE.DR PO (10:25)
[2023-07-07] MEDS: methylPREDNISolone Sod Succ 40 MG/ML VIAL IVPUSH ×2 (10:27→16:10)
[2023-07-07] MEDS: Albuterol/Iprat 2.5/0.5MG 3 ML AMPUL.NEB INHALE ×4 (10:35→21:37)
--- NOTE | 2023-07-07 14:03 | PC.NURSE ---
PT HAS A MALE VISITOR AT BEDSIDE.
--- NOTE | 2023-07-07 14:44 | P.PNIM_ITS ---
Subjective Subjective Date of Service: 07/07/23 Interval History: seen and examined this morning Follow-up for asthma exacerbation Reporting shortness of breath, cough Review of Systems Review of Systems: Yes all other systems are reviewed and are negative Constitutional Constitutional: Denies chills and Denies fever(s) Cardiovascular Cardiovascular: Denies chest pain, Denies palpitations and Reports dyspnea Respiratory Respiratory: Reports cough and Reports dyspnea Endocrine Endocrine: Denies palpitations Physical Exam 2 Vital Signs: Vital Signs: Last Vital Signs Temp 97.7 F 07/07/23 09:30 Pulse 97 07/07/23 14:26 Resp 20 07/07/23 14:26 BP 117/58 L 07/07/23 09:30 Pulse Ox 98 07/07/23 09:30 O2 Del Method Oxymask 07/07/23 09:30 O2 Flow Rate 5 07/07/23 09:30 BMI result Body Mass Index 31.0 Const: General: cooperative, comfortable, alert and awake Nutritional Appearance: average body habitus Orientation/consciousness: patient oriented x3 Resp: Other: scattered wheeze, rhonchi Effort & Inspection: normal respiratory effort, no respiratory distress and no use of accessory muscles Cardio: Rate: regular rate GI: Inspection: No distended Palpation (GI): Soft to palpation and nontender Neuro: General: patient oriented x3, moves all extremities and CN's II-XI intact bilaterally Extrem: General: Yes no pedal edema Objective Data Active Medications Acetaminophen (Acetaminophen 325 Mg Tablet) 975 mg PO Q6H PRN PRN Reason: Pain, Mild (Pain Scale 1-3) Albuterol Sulfate (Albuterol Sulfate (0.083%) 2.5 Mg/3 Ml Vial.Neb) 2.5 mg INHALE Q4H PRN PRN Reason: Shortness of Breath/Wheezing Albuterol/Ipratropium (Albuterol/Iprat 2.5/0.5mg 3 Ml Ampul.Neb) 3 ml INHALE RQ4H WHILE AWAKE [facility] Last Admin: 07/07/23 14:26 Dose: 3 ml Documented By: RUDY Apixaban (Apixaban 5 Mg Tablet) 5 mg PO BID [facility] Last Admin: 07/07/23 10:24 Dose: 5 mg Documented By: NEVIN Duloxetine HCl (Duloxetine Hcl 60 Mg Capsule.) 60 mg PO DAILY [facility] Last Admin: 07/07/23 10:25 Dose: 60 mg Documented By: NEVIN Fluticasone/Vilanterol (Fluticasone/Vilanterol 200/25 Blst.W.Dev) 1 puff INHALE RDAILY [facility] Last Admin: 07/07/23 10:17 Dose: Not Given Documented By: RUDY Non-Admin Reason: See Note Furosemide (Furosemide 40 Mg Tablet) 20 mg PO BID [facility]; Protocol Lisinopril (Lisinopril 2.5 Mg Tablet) 2.5 mg PO DAILY [facility]; Protocol Last Admin: 07/07/23 10:19 Dose: 2.5 mg Documented By: NEVIN Methylprednisolone Sodium Succinate (Methylprednisolone Sod Succ 40 Mg/Ml Vial) 40 mg IVPUSH DAILY [facility] Last Admin: 07/07/23 10:27 Dose: 40 mg Documented By: NEVIN Metoprolol Succinate (Metoprolol Succinate Er 100 Mg Tab.Er.24h) 100 mg PO DAILY [facility]; Protocol Last Admin: 07/07/23 10:18 Dose: 100 mg Documented By: NEVIN Montelukast Sodium (Montelukast Sodium 10 Mg Tablet) 10 mg PO BEDTIME [facility] Omeprazole (Omeprazole 40 Mg Capsule.) 40 mg PO DAILY [facility] Last Admin: 07/07/23 10:18 Dose: 40 mg Documented By: NEVIN Sodium Chloride (0.9 % Sodium Chloride Flush 3 Ml Syringe) 3 ml IVFLUSH QSHIFT [facility] Last Admin: 07/07/23 10:24 Dose: Not Given Documented By: NEVIN Non-Admin Reason: UNABLE TO CHART Tizanidine HCl (Tizanidine Hcl 4 Mg Tablet) 4 mg PO TID PRN PRN Reason: headache Labs 07/07/23 06:14 07/07/23 06:14 Labs: Laboratory Results - last 24 hr 07/06/23 07/07/23 23:01 06:14 MCV 82.1 84.2 MCH 26.6 L 27.1 MCHC 32.4 32.2 RDW 14.9 15.0 Plt Count 317 306 MPV 8.4 L 8.3 L Immature Gran % (Auto) 0.2 0.4 Neut % (Auto) 52.6 90.7 H Lymph % (Auto) 23.4 7.6 L Haakon % (Auto) 7.5 0.6 L Eos % (Auto) 15.8 H 0.3 Baso % (Auto) 0.5 0.4 Lymph # (Auto) 1.9 0.6 L Haakon # (Auto) 0.6 0.1 Eos # (Auto) 1.3 H 0.0 Baso # (Auto) 0.0 0.0 Abs Immat Gran (auto) 0.02 0.03 Absolute Neuts (auto) 4.2 7.0 Absolute Nucleated RBC 0.000 0.000 Nucleated RBC % (auto) 0.0 0.0 Smear Tech's Comments VERIFIED PT 12.2 INR 1.0 APTT 44.6 H Anion Gap 13 14 Estim Creat Clear Calc 82.5 71.7 Estimated GFR > 60 > 60 Random Glucose 99 146 H Lactic Acid 1.3 Calcium 9.5 8.9 D Magnesium 2.2 Total Bilirubin 0.3 AST 22 ALT 34 H Alkaline Phosphatase 147 H B-Natriuretic Peptide < 10 Total Protein 7.6 Albumin 4.0 Lipase 22 Influenza Type A (PCR) NEGATIVE Influenza Type B (PCR) NEGATIVE RSV RNA Qual (PCR) NEGATIVE SARS-CoV-2 RNA (RT-PCR) NEGATIVE Assessment and Plan (1) Asthma with acute exacerbation: Status: Acute Plan This is a 63 years old woman with history of atrial fibrillation on Eliquis, asthma, hypertension, depression who presents with shortness of breath found to be hypoxic admitted with asthma exacerbation: acute hypoxic respiratory failure secondary to acute exacerbation of asthma o2 sat dropped to 88% on room air in the ED CXR negative for pneumonia will check RPP Supplemental oxygen to keep O2 sats > 90%. wean as tolerated Continue bronchodilator therapy continue Solu-Medrol IV Blood cultures pending Paroxysmal Atrial fibrillation. Continue Eliquis and metoprolol. Essential hypertension. Continue metoprolol and lisinopril. History of CHF, unspecified compensated. Continue furosemide. Depression. Continue duloxetine. GERD. Continue omeprazole. DVT prophylaxis: Eliquis Code status: Full Requires ongoing inpatient hospitalization for hypoxic respiratory failure secondary to bronchial asthma treatment with supplemental oxygen, bronchodilator therapy and IV steroids. She will also require close monitoring of vital signs. Due to history of intubation will need close monitoring of respiratory status. Quality Stroke Does the patient have a stroke diagnosis?: No VTE Prior VTE?: No VTE Risk Level:: Medical - moderate - high VTE Device Contraindication: Treatment Not Indicated VTE Drug Contraindication: N/A - Med Ordered
--- NOTE | 2023-07-07 16:13 | PC.NURSE ---
skin pwd. unlabroed resp. awaits bed upstairs. c/o headache. no SOB at rest in bed but slightly tachipnic
[2023-07-07] MEDS: guaiFENesin DM 600/30 1 TAB TAB.ER.12H 2 TAB PO (22:08)
[2023-07-07] MEDS: Montelukast Sodium 10 MG TABLET PO (22:09)
[2023-07-07] MEDS: Furosemide 40 MG TABLET 20 MG PO (22:10)
[2023-07-07] MEDS: Magnesium Sulfate/H2O 2 GM/50 ML PIGGYBACK IV (22:14)
[2023-07-07] MEDS: 0.9 % Sodium Chloride Flush 3 ML SYRINGE IVFLUSH (22:29)
[2023-07-08] VITALS (12 sets, daily range): BP systolic 117–139; BP diastolic 65–96; PULSE 76–95; RESP 18–22; TEMP 36.1–36.6; O2SAT 91–98
[2023-07-08] MEDS: methylPREDNISolone Sod Succ 40 MG/ML VIAL IVPUSH ×2 (03:00→14:37)
[2023-07-08] MEDS: Albuterol/Iprat 2.5/0.5MG 3 ML AMPUL.NEB INHALE ×3 (06:29→19:51)
[2023-07-08] MEDS: Albuterol Sulfate (0.083%) 2.5 MG/3 ML VIAL.NEB INHALE (07:29)
[2023-07-08] MEDS: Fluticasone/Vilanterol 200/25 BLST.W.DEV 1 PUFF INHALE (07:37)
--- NOTE | 2023-07-08 08:42 | PC.RT ---
pt c/o of being sob when moving around. PRN ALbuterol tx given due to wheezing all lobes f/b breo inhaler. pt was on 4 l oxymask weaned to 2 liters then eventually off. Her sats were 93% on room air at rest.
[2023-07-08 09:03] LABS: Adenovirus PCR Not Detected (Not Detect.); Bordetella parapertussis PCR Not Detected (Not Detect.); Bordetella pertussis PCR Not Detected (Not Detect.); Chlamydia pneumoniae PCR Not Detected (Not Detect.); Coronavirus 229E PCR Not Detected (Not Detect.); Coronavirus HKU1 PCR Not Detected (Not Detect.); Coronavirus NL63 PCR Not Detected (Not Detect.); Coronavirus OC43 PCR Not Detected (Not Detect.); Human metapneumovirus PCR Not Detected (Not Detect.); Influenza A PCR Not Detected (Not Detect.); Influenza B PCR Not Detected (Not Detect.); Mycoplasma pneumoniae PCR Not Detected (Not Detect.); Parainfluenza 1 PCR Not Detected (Not Detect.); Parainfluenza 2 PCR Not Detected (Not Detect.); Parainfluenza 3 PCR Not Detected (Not Detect.); Parainfluenza 4 PCR Not Detected (Not Detect.); RSV PCR Not Detected (Not Detect.); Rhino/Enterovirus PCR Not Detected (Not Detect.)
[2023-07-08] MEDS: lisinopriL 2.5 MG TABLET PO (09:32)
[2023-07-08] MEDS: Metoprolol Succinate ER 100 MG TAB.ER.24H PO (09:32)
[2023-07-08] MEDS: Apixaban 5 MG TABLET PO ×2 (09:32→20:57)
[2023-07-08] MEDS: guaiFENesin DM 600/30 1 TAB TAB.ER.12H 2 TAB PO ×2 (09:32→20:58)
[2023-07-08] MEDS: Omeprazole 40 MG CAPSULE.DR PO (09:32)
[2023-07-08] MEDS: 0.9 % Sodium Chloride Flush 3 ML SYRINGE IVFLUSH ×3 (09:33→21:00)
[2023-07-08] MEDS: DULoxetine HCl 60 MG CAPSULE.DR PO (09:33)
[2023-07-08 09:51] LABS: SARS-CoV-2 PCR Not Detected (Not Detect.)
--- NOTE | 2023-07-08 14:07 | MHC.CM.PN ---
EMR REVIEWED, PER HOSPITALIST NO PLAN FOR DC TODAY PT REMAINS SOB, DC PLAN CONT'S TO BE HOME SELF CARE W/FAMILY FOR TRANSPORT, CM WILL CONT TO FOLLOW DC NEEDS.
[2023-07-08] MEDS: Sodium Chloride 0.65 % Nasal 44 ML SPRBTL 1 SPRAY NOSTRIL-B ×2 (14:36→21:06)
--- NOTE | 2023-07-08 14:53 | HO.PM.IMPN ---
Subjective Subjective Date of Service: 07/08/23 Interval History: Seen and examined this morning Follow-up for asthma exacerbation Attempted to wean off oxygen, O2 sat dropped to high 80s, replaced on 2 L supplemental oxygen Remains short of breath with ambulation Review of Systems Review of Systems: Yes all other systems are reviewed and are negative Constitutional Constitutional: Denies chills and Denies fever(s) Cardiovascular Cardiovascular: Denies chest pain and Reports dyspnea Respiratory Respiratory: Reports cough and Reports dyspnea Physical Exam Vital Signs: Vital Signs: Last Vital Signs Temp 97.0 F 07/08/23 11:52 Pulse 76 07/08/23 11:52 Resp 22 H 07/08/23 11:52 BP 117/65 07/08/23 11:52 Pulse Ox 93 07/08/23 11:52 O2 Del Method Oxymask 07/08/23 11:52 O2 Flow Rate 2 07/08/23 11:52 BMI result Body Mass Index 29.8 Const: General: cooperative, comfortable, alert and awake Nutritional Appearance: average body habitus Orientation/consciousness: patient oriented x3 Resp: Other: b/l expiratory wheezing Effort & Inspection: normal respiratory effort, no respiratory distress and no use of accessory muscles Cardio: Rate: regular rate GI: Inspection: No distended Palpation (GI): Soft to palpation and nontender Neuro: General: patient oriented x3, moves all extremities and CN's II-XI intact bilaterally Extrem: General: Yes no pedal edema Objective Data Active Medications Acetaminophen (Acetaminophen 325 Mg Tablet) 975 mg PO Q6H PRN PRN Reason: headache, pain and fever Last Admin: 07/07/23 22:24 Dose: 975 mg Documented By: ELIN Albuterol Sulfate (Albuterol Sulfate (0.083%) 2.5 Mg/3 Ml Vial.Neb) 2.5 mg INHALE Q4H PRN PRN Reason: Shortness of Breath/Wheezing Last Admin: 07/08/23 07:29 Dose: 2.5 mg Documented By: BIB Albuterol/Ipratropium (Albuterol/Iprat 2.5/0.5mg 3 Ml Ampul.Neb) 3 ml INHALE RQ4H WHILE AWAKE [facility] Last Admin: 07/08/23 11:12 Dose: 3 ml Documented By: BIB Apixaban (Apixaban 5 Mg Tablet) 5 mg PO BID [facility] [place] Last Admin: 07/08/23 09:32 Dose: 5 mg Documented By: LETICIA Duloxetine HCl (Duloxetine Hcl 60 Mg Capsule.) 60 mg PO DAILY [facility] [place] Last Admin: 07/08/23 09:33 Dose: 60 mg Documented By: LETICIA Fluticasone/Vilanterol (Fluticasone/Vilanterol 200/25 Blst.W.Dev) 1 puff INHALE RDAILY [facility] [place] Last Admin: 07/08/23 07:37 Dose: 1 puff Documented By: BIB Furosemide (Furosemide 40 Mg Tablet) 20 mg PO BID [facility] [place]; Protocol Last Admin: 07/08/23 09:34 Dose: Not Given Documented By: LETICIA Non-Admin Reason: Patient Refused Guaifenesin/Dextromethorphan (Guaifenesin Dm 600/30 1 Tab Tab.Er.12h) 2 tab PO BID [facility] [place] Last Admin: 07/08/23 09:32 Dose: 2 tab Documented By: LETICIA Lisinopril (Lisinopril 2.5 Mg Tablet) 2.5 mg PO DAILY [facility] [place]; Protocol Last Admin: 07/08/23 09:32 Dose: 2.5 mg Documented By: LETICIA Methylprednisolone Sodium Succinate (Methylprednisolone Sod Succ 40 Mg/Ml Vial) 40 mg IVPUSH Q12H [facility] [place] Last Admin: 07/08/23 14:37 Dose: 40 mg Documented By: LINN Metoprolol Succinate (Metoprolol Succinate Er 100 Mg Tab.Er.24h) 100 mg PO DAILY [facility] [place]; Protocol Last Admin: 07/08/23 09:32 Dose: 100 mg Documented By: LETICIA Montelukast Sodium (Montelukast Sodium 10 Mg Tablet) 10 mg PO BEDTIME [facility] [place] Last Admin: 07/07/23 22:09 Dose: 10 mg Documented By: ELIN Omeprazole (Omeprazole 40 Mg Capsule.) 40 mg PO DAILY [facility] [place] Last Admin: 07/08/23 09:32 Dose: 40 mg Documented By: LETICIA Sodium Chloride (0.9 % Sodium Chloride Flush 3 Ml Syringe) 3 ml IVFLUSH QSHIFT [facility] [place] Last Admin: 07/08/23 14:37 Dose: 3 ml Documented By: LINN Sodium Chloride (Sodium Chloride 0.65 % Nasal 44 Ml Sprbtl) 1 spray NOSTRIL-B Q1H PRN PRN Reason: Dry Nasal Passages Last Admin: 07/08/23 14:36 Dose: 1 spray Documented By: LINN Tizanidine HCl (Tizanidine Hcl 4 Mg Tablet) 4 mg PO TID PRN PRN Reason: headache Labs 07/07/23 06:14 07/07/23 06:14 Labs: Laboratory Results - last 24 hr 07/07/23 16:01 Respiratory Panel Conteh See Note Adenovirus (Rapid PCR) Not Detected B.pert (TEM-PCR) Not Detected B.parapertussis DNA PCR Not Detected C. pneumoniae DNA (PCR) Not Detected Coronavirus OC43 (PCR) Not Detected Coronavirus HKU1 (PCR) Not Detected Coronavirus 229E (PCR) Not Detected Coronavirus NL63 (PCR) Not Detected Human Metapneumovir PCR Not Detected Influenza A (RT-PCR) Not Detected Influenza B (RT-PCR) Not Detected M. pneumoniae (PCR) Not Detected Parainfluenza 1 (PCR) Not Detected Parainfluenza 2 (PCR) Not Detected Parainfluenza 3 (PCR) Not Detected Parainfluenza 4 (PCR) Not Detected RSV (PCR) Not Detected Entero/Rhino (PCR) Not Detected SARS-CoV-2 RNA (RT-PCR) Not Detected Microbiology Microbiology Results: Microbiology 07/06/23 23:59 Blood Culture - Preliminary Blood - Venous No growth after 24 hours. 07/06/23 23:01 Blood Culture - Preliminary Blood - Venous No growth after 24 hours. Assessment and Plan (1) Asthma with acute exacerbation: Status: Acute (2) Hypoxic respiratory failure: Status: Acute Plan This is a 63 years old woman with history of atrial fibrillation on Eliquis, asthma, hypertension, depression who presents with shortness of breath found to be hypoxic admitted with asthma exacerbation: acute hypoxic respiratory failure secondary to acute exacerbation of asthma o2 sat dropped to 88% on room air in the ED, attempted to wean oxygen today, o2 dropped to 88% CXR negative for pneumonia, RPP negative Supplemental oxygen to keep O2 sats > 90%. wean as tolerated Continue bronchodilator therapy increase frequency of solu-medrol Blood cultures negative to date Paroxysmal Atrial fibrillation. in sinus rhythm Continue Eliquis and metoprolol. Essential hypertension. Continue metoprolol and lisinopril. History of CHF, unspecified compensated. BNP <10 Continue furosemide. Depression. Continue duloxetine. GERD. Continue omeprazole. DVT prophylaxis: Rafiq Code status: Full Requires ongoing inpatient hospitalization for hypoxic respiratory failure secondary to bronchial asthma treatment with supplemental oxygen, bronchodilator therapy and IV steroids. She will also require close monitoring of vital signs. Due to history of intubation will need close monitoring of respiratory status. Quality Stroke Does the patient have a stroke diagnosis?: No VTE Prior VTE?: No VTE Risk Level:: Medical - moderate - high VTE Device Contraindication: Treatment Not Indicated VTE Drug Contraindication: N/A - Med Ordered
[2023-07-08] MEDS: Albuterol Sulfate 2.5 MG, Albuterol Sulfate (0.083%) 2.5 MG 5 MG INHALE (15:01)
[2023-07-08] MEDS: Magnesium Sulfate/H2O 2 GM/50 ML PIGGYBACK IV (15:21)
[2023-07-08] MEDS: Furosemide 40 MG TABLET 20 MG PO (20:57)
[2023-07-08] MEDS: Montelukast Sodium 10 MG TABLET PO (20:58)
[2023-07-09] VITALS (11 sets, daily range): BP systolic 110–145; BP diastolic 65–88; PULSE 78–96; RESP 16–22; TEMP 36.1–36.7; O2SAT 90–93
[2023-07-09] MEDS: methylPREDNISolone Sod Succ 40 MG/ML VIAL IVPUSH ×3 (00:50→17:11)
[2023-07-09] MEDS: Albuterol/Iprat 2.5/0.5MG 3 ML AMPUL.NEB INHALE ×4 (08:11→20:30)
[2023-07-09] MEDS: Fluticasone/Vilanterol 200/25 BLST.W.DEV 1 PUFF INHALE (08:11)
[2023-07-09] MEDS: Omeprazole 40 MG CAPSULE.DR PO (10:09)
[2023-07-09] MEDS: Furosemide 40 MG TABLET 20 MG PO ×2 (10:09→20:56)
[2023-07-09] MEDS: 0.9 % Sodium Chloride Flush 3 ML SYRINGE IVFLUSH ×2 (10:09→17:11)
[2023-07-09] MEDS: lisinopriL 2.5 MG TABLET PO (10:10)
[2023-07-09] MEDS: Apixaban 5 MG TABLET PO ×2 (10:11→20:57)
[2023-07-09] MEDS: Metoprolol Succinate ER 100 MG TAB.ER.24H PO (10:11)
[2023-07-09] MEDS: DULoxetine HCl 60 MG CAPSULE.DR PO (10:12)
[2023-07-09] MEDS: guaiFENesin DM 600/30 1 TAB TAB.ER.12H 2 TAB PO ×2 (10:27→20:56)
[2023-07-09] MEDS: Doxycycline Hyclate 100 MG in 0.9 % Sodium Chloride 250 ML 166.67 MG IV (11:56)
--- NOTE | 2023-07-09 14:53 | HO.PM.IMPN ---
Subjective Subjective Date of Service: 07/09/23 Interval History: seen and examined this morning follow up for asthma exacerbation some phlegm production, persistent cough and dyspnea no fever or chills Review of Systems Review of Systems: Yes all other systems are reviewed and are negative Constitutional Constitutional: Denies chills and Denies fever(s) Cardiovascular Cardiovascular: Denies chest pain Gastrointestinal Gastrointestinal: Denies abdominal pain Physical Exam Vital Signs: Vital Signs: Last Vital Signs Temp 98.1 F 07/09/23 11:17 Pulse 96 07/09/23 11:50 Resp 18 07/09/23 11:50 BP 119/69 07/09/23 11:17 Pulse Ox 92 07/09/23 11:17 O2 Del Method Room Air 07/09/23 11:17 O2 Flow Rate 2 07/08/23 11:52 BMI result Body Mass Index 29.8 Const: General: cooperative, comfortable, alert and awake Nutritional Appearance: average body habitus Orientation/consciousness: patient oriented x3 Resp: Other: b/l expiratory wheezing Effort & Inspection: normal respiratory effort, no respiratory distress and no use of accessory muscles Cardio: Rate: regular rate GI: Inspection: No distended Palpation (GI): Soft to palpation and nontender Neuro: General: patient oriented x3, moves all extremities and CN's II-XI intact bilaterally Extrem: General: Yes no pedal edema Objective Data Active Medications Acetaminophen (Acetaminophen 325 Mg Tablet) 975 mg PO Q6H PRN PRN Reason: headache, pain and fever Last Admin: 07/07/23 22:24 Dose: 975 mg Documented By: ELIN Albuterol Sulfate (Albuterol Sulfate (0.083%) 2.5 Mg/3 Ml Vial.Neb) 2.5 mg INHALE Q4H PRN PRN Reason: Shortness of Breath/Wheezing Last Admin: 07/08/23 07:29 Dose: 2.5 mg Documented By: BIB Albuterol/Ipratropium (Albuterol/Iprat 2.5/0.5mg 3 Ml Ampul.Neb) 3 ml INHALE RQ4H WHILE AWAKE [facility] Last Admin: 07/09/23 11:50 Dose: 3 ml Documented By: LAURA Apixaban (Apixaban 5 Mg Tablet) 5 mg PO BID [facility] Last Admin: 07/09/23 10:11 Dose: 5 mg Documented By: JUDAH Duloxetine HCl (Duloxetine Hcl 60 Mg Capsule.) 60 mg PO DAILY [facility] Last Admin: 07/09/23 10:12 Dose: 60 mg Documented By: JUDAH Fluticasone/Vilanterol (Fluticasone/Vilanterol 200/25 Blst.W.Dev) 1 puff INHALE RDAILY [facility] Last Admin: 07/09/23 08:11 Dose: 1 puff Documented By: LAURA Furosemide (Furosemide 40 Mg Tablet) 20 mg PO BID [facility]; Protocol Last Admin: 07/09/23 10:09 Dose: 20 mg Documented By: JUDAH Guaifenesin/Dextromethorphan (Guaifenesin Dm 600/30 1 Tab Tab.Er.12h) 2 tab PO BID [facility] Last Admin: 07/09/23 10:27 Dose: 2 tab Documented By: JUDAH Doxycycline Hyclate 100 mg/ (Sodium Chloride) 250 mls @ 166.67 mls/hr IV Q12H [facility] Last Admin: 07/09/23 11:56 Dose: 166.67 mls/hr Documented By: JUDAH Lisinopril (Lisinopril 2.5 Mg Tablet) 2.5 mg PO DAILY [facility]; Protocol Last Admin: 07/09/23 10:10 Dose: 2.5 mg Documented By: JUDAH Methylprednisolone Sodium Succinate (Methylprednisolone Sod Succ 40 Mg/Ml Vial) 40 mg IVPUSH Q8H [facility] Last Admin: 07/09/23 06:46 Dose: 40 mg Documented By: ITZEL Metoprolol Succinate (Metoprolol Succinate Er 100 Mg Tab.Er.24h) 100 mg PO DAILY [facility]; Protocol Last Admin: 07/09/23 10:11 Dose: 100 mg Documented By: JUDAH Montelukast Sodium (Montelukast Sodium 10 Mg Tablet) 10 mg PO BEDTIME [facility] Last Admin: 07/08/23 20:58 Dose: 10 mg Documented By: ITZEL Omeprazole (Omeprazole 40 Mg Capsule.) 40 mg PO DAILY [facility] Last Admin: 07/09/23 10:09 Dose: 40 mg Documented By: JUDAH Sodium Chloride (0.9 % Sodium Chloride Flush 3 Ml Syringe) 3 ml IVFLUSH QSHIFT [facility] Last Admin: 07/09/23 10:09 Dose: 3 ml Documented By: JUDAH Sodium Chloride (Sodium Chloride 0.65 % Nasal 44 Ml Sprbtl) 1 spray NOSTRIL-B Q1H PRN PRN Reason: Dry Nasal Passages Last Admin: 07/08/23 21:06 Dose: 1 spray Documented By: ITZEL Tizanidine HCl (Tizanidine Hcl 4 Mg Tablet) 4 mg PO TID PRN PRN Reason: headache Labs 07/07/23 06:14 07/07/23 06:14 Microbiology Microbiology Results: Microbiology 07/06/23 23:59 Blood Culture - Preliminary Blood - Venous No growth after 48 hours. 07/06/23 23:01 Blood Culture - Preliminary Blood - Venous No growth after 48 hours. Assessment and Plan (1) Asthma with acute exacerbation: Status: Acute Plan This is a 63 years old woman with history of atrial fibrillation on Eliquis, asthma, hypertension, depression who presents with shortness of breath found to be hypoxic admitted with asthma exacerbation: acute hypoxic respiratory failure secondary to acute exacerbation of asthma o2 sat dropped to 88% on room air in the ED, attempted to wean oxygen 07/07, o2 dropped to 88% CXR negative for pneumonia, RPP negative Supplemental oxygen to keep O2 sats > 90%. wean as tolerated Continue bronchodilator therapy increase frequency of solu-medrol Blood cultures negative to date will start IV doxycycline for acute bronchitis Paroxysmal Atrial fibrillation. in sinus rhythm Continue Eliquis and metoprolol. Essential hypertension. Continue metoprolol and lisinopril. History of CHF, unspecified compensated. BNP <10 Continue furosemide. Depression. Continue duloxetine. GERD. Continue omeprazole. DVT prophylaxis: Eliquis Code status: Full Requires ongoing inpatient hospitalization for hypoxic respiratory failure secondary to bronchial asthma treatment with supplemental oxygen, bronchodilator therapy and IV steroids. She will also require close monitoring of vital signs. Due to history of intubation will need close monitoring of respiratory status. Quality Stroke Does the patient have a stroke diagnosis?: No VTE Prior VTE?: No VTE Risk Level:: Medical - moderate - high VTE Device Contraindication: Treatment Not Indicated VTE Drug Contraindication: N/A - Med Ordered
[2023-07-09] MEDS: Montelukast Sodium 10 MG TABLET PO (20:57)
[2023-07-10] VITALS (10 sets, daily range): BP systolic 135–144; BP diastolic 71–87; PULSE 72–94; RESP 18–28; TEMP 36.1–36.6; O2SAT 89–99
[2023-07-10] MEDS: methylPREDNISolone Sod Succ 40 MG/ML VIAL IVPUSH ×4 (00:07→23:18)
[2023-07-10] MEDS: Doxycycline Hyclate 100 MG in 0.9 % Sodium Chloride 250 ML 166.67 MG IV ×3 (00:07→23:10)
[2023-07-10] MEDS: 0.9 % Sodium Chloride Flush 3 ML SYRINGE IVFLUSH ×4 (00:07→23:20)
[2023-07-10] MEDS: Docusate Sodium 100 MG CAPSULE PO ×2 (00:36→21:12)
[2023-07-10] MEDS: Albuterol Sulfate (0.083%) 2.5 MG/3 ML VIAL.NEB INHALE (02:06)
[2023-07-10] MEDS: Albuterol/Iprat 2.5/0.5MG 3 ML AMPUL.NEB INHALE ×3 (08:06→19:28)
[2023-07-10] MEDS: Fluticasone/Vilanterol 200/25 BLST.W.DEV 1 PUFF INHALE (08:06)
[2023-07-10] MEDS: lisinopriL 2.5 MG TABLET PO (08:34)
[2023-07-10] MEDS: Omeprazole 40 MG CAPSULE.DR PO (08:35)
[2023-07-10] MEDS: guaiFENesin DM 600/30 1 TAB TAB.ER.12H 2 TAB PO ×2 (08:35→21:12)
[2023-07-10] MEDS: Furosemide 40 MG TABLET 20 MG PO ×2 (08:35→21:18)
[2023-07-10] MEDS: Apixaban 5 MG TABLET PO ×2 (08:36→21:12)
[2023-07-10] MEDS: Metoprolol Succinate ER 100 MG TAB.ER.24H PO (08:36)
[2023-07-10] MEDS: DULoxetine HCl 60 MG CAPSULE.DR PO (08:36)
--- NOTE | 2023-07-10 13:25 | HO.PM.IMPN ---
Subjective Subjective Date of Service: 07/10/23 Interval History: seen and examined this morning follow up for asthma exacerbation, bronchitis still with productive cough, breathing improving, less dyspnea, able to take deeper breaths Review of Systems Review of Systems: Yes all other systems are reviewed and are negative Constitutional Constitutional: Denies chills and Denies fever(s) Cardiovascular Cardiovascular: Denies chest pain and Denies palpitations Respiratory Respiratory: Reports cough Gastrointestinal Gastrointestinal: Denies abdominal pain Endocrine Endocrine: Denies palpitations Physical Exam Vital Signs: Vital Signs: Last Vital Signs Temp 96.9 F 07/10/23 11:03 Pulse 91 07/10/23 12:06 Resp 20 07/10/23 12:06 BP 135/73 07/10/23 11:03 Pulse Ox 93 07/10/23 11:03 O2 Del Method Room Air 07/10/23 11:03 O2 Flow Rate 2 07/08/23 11:52 BMI result Body Mass Index 29.8 Const: General: cooperative, comfortable, alert and awake Nutritional Appearance: average body habitus Orientation/consciousness: patient oriented x3 Resp: Other: improved air entry b/l, persistent b/l wheezing improving Effort & Inspection: normal respiratory effort, no respiratory distress and no use of accessory muscles Cardio: Rate: regular rate GI: Inspection: No distended Palpation (GI): Soft to palpation and nontender Neuro: General: patient oriented x3, moves all extremities and CN's II-XI intact bilaterally Extrem: General: Yes no pedal edema Objective Data Active Medications Acetaminophen (Acetaminophen 325 Mg Tablet) 975 mg PO Q6H PRN PRN Reason: headache, pain and fever Last Admin: 07/07/23 22:24 Dose: 975 mg Documented By: ELIN Albuterol Sulfate (Albuterol Sulfate (0.083%) 2.5 Mg/3 Ml Vial.Neb) 2.5 mg INHALE Q4H PRN PRN Reason: Shortness of Breath/Wheezing Last Admin: 07/10/23 02:06 Dose: 2.5 mg Documented By: LATRICE Albuterol/Ipratropium (Albuterol/Iprat 2.5/0.5mg 3 Ml Ampul.Neb) 3 ml INHALE RQ4H WHILE AWAKE [facility] Last Admin: 07/10/23 12:06 Dose: 3 ml Documented By: LAURA Apixaban (Apixaban 5 Mg Tablet) 5 mg PO BID [facility] Last Admin: 07/10/23 08:36 Dose: 5 mg Documented By: RICKY Docusate Sodium (Docusate Sodium 100 Mg Capsule) 100 mg PO BID [facility] Duloxetine HCl (Duloxetine Hcl 60 Mg Capsule.) 60 mg PO DAILY [facility] Last Admin: 07/10/23 08:36 Dose: 60 mg Documented By: RICKY Fluticasone/Vilanterol (Fluticasone/Vilanterol 200/25 Blst.W.Dev) 1 puff INHALE RDAILY [facility] Last Admin: 07/10/23 08:06 Dose: 1 puff Documented By: LAURA Furosemide (Furosemide 40 Mg Tablet) 20 mg PO BID [facility]; Protocol Last Admin: 07/10/23 08:35 Dose: 20 mg Documented By: RICKY Guaifenesin/Dextromethorphan (Guaifenesin Dm 600/30 1 Tab Tab.Er.12h) 2 tab PO BID [facility] Last Admin: 07/10/23 08:35 Dose: 2 tab Documented By: RICKY Doxycycline Hyclate 100 mg/ (Sodium Chloride) 250 mls @ 166.67 mls/hr IV Q12H [facility] Last Infusion: 07/10/23 12:06 Dose: Infused Documented By: RICKY Lisinopril (Lisinopril 2.5 Mg Tablet) 2.5 mg PO DAILY [facility]; Protocol Last Admin: 07/10/23 08:34 Dose: 2.5 mg Documented By: RICKY Methylprednisolone Sodium Succinate (Methylprednisolone Sod Succ 40 Mg/Ml Vial) 40 mg IVPUSH Q8H [facility] Last Admin: 07/10/23 06:01 Dose: 40 mg Documented By: SRUTHI Metoprolol Succinate (Metoprolol Succinate Er 100 Mg Tab.Er.24h) 100 mg PO DAILY [facility]; Protocol Last Admin: 07/10/23 08:36 Dose: 100 mg Documented By: RICKY Montelukast Sodium (Montelukast Sodium 10 Mg Tablet) 10 mg PO BEDTIME [facility] Last Admin: 07/09/23 20:57 Dose: 10 mg Documented By: FELIPE Omeprazole (Omeprazole 40 Mg Capsule.) 40 mg PO DAILY [facility] Last Admin: 07/10/23 08:35 Dose: 40 mg Documented By: RICKY Polyethylene Glycol (Polyethylene Glycol 3350 17 Gm Powd.Pack) 17 gm PO DAILY PRN PRN Reason: Constipation Sodium Chloride (0.9 % Sodium Chloride Flush 3 Ml Syringe) 3 ml IVFLUSH QSHIFT [facility] Last Admin: 07/10/23 08:41 Dose: 3 ml Documented By: RICKY Sodium Chloride (Sodium Chloride 0.65 % Nasal 44 Ml Sprbtl) 1 spray NOSTRIL-B Q1H PRN PRN Reason: Dry Nasal Passages Last Admin: 07/08/23 21:06 Dose: 1 spray Documented By: ITZEL Tizanidine HCl (Tizanidine Hcl 4 Mg Tablet) 4 mg PO TID PRN PRN Reason: headache Labs 07/07/23 06:14 07/07/23 06:14 Assessment and Plan (1) Asthma with acute exacerbation: Status: Acute Plan This is a 63 years old woman with history of atrial fibrillation on Eliquis, asthma, hypertension, depression who presents with shortness of breath found to be hypoxic admitted with asthma exacerbation: acute hypoxic respiratory failure secondary to acute exacerbation of asthma and acute bronchitis o2 sat dropped to 88% on room air in the ED, attempted to wean oxygen 07/07, o2 dropped to 88% CXR negative for pneumonia, RPP negative Continue bronchodilator therapy, and solu-medrol Blood cultures negative to date continue IV doxycycline started 07/08 able to be weaned off oxygen and is currently on room air Paroxysmal Atrial fibrillation. in sinus rhythm Continue Eliquis and metoprolol. Essential hypertension. Continue metoprolol and lisinopril. History of CHF, unspecified compensated. BNP <10 Continue furosemide. Depression. Continue duloxetine. GERD. Continue omeprazole. of note patient has outpatient sleep study and PTFs scheduled next week DVT prophylaxis: Eliquis Code status: Full Requires ongoing inpatient hospitalization for hypoxic respiratory failure secondary to bronchial asthma treatment with supplemental oxygen, bronchodilator therapy and IV steroids. She will also require close monitoring of vital signs. Due to history of intubation will need close monitoring of respiratory status. Quality Stroke Does the patient have a stroke diagnosis?: No VTE Prior VTE?: No VTE Risk Level:: Medical - moderate - high VTE Device Contraindication: Treatment Not Indicated VTE Drug Contraindication: N/A - Med Ordered
[2023-07-10] MEDS: Montelukast Sodium 10 MG TABLET PO (21:13)
[2023-07-11] VITALS (10 sets, daily range): BP systolic 121–156; BP diastolic 67–89; PULSE 66–94; RESP 18–22; TEMP 36–36.7; O2SAT 91–94
[2023-07-11] MEDS: LORazepam 0.5 MG TABLET PO ×2 (03:51→22:01)
[2023-07-11] MEDS: methylPREDNISolone Sod Succ 40 MG/ML VIAL IVPUSH ×2 (06:11→14:25)
[2023-07-11] MEDS: Fluticasone/Vilanterol 200/25 BLST.W.DEV 1 PUFF INHALE (07:43)
[2023-07-11] MEDS: Albuterol/Iprat 2.5/0.5MG 3 ML AMPUL.NEB INHALE ×4 (07:43→20:01)
[2023-07-11] MEDS: Apixaban 5 MG TABLET PO ×2 (09:19→21:14)
[2023-07-11] MEDS: Docusate Sodium 100 MG CAPSULE PO ×2 (09:19→21:15)
[2023-07-11] MEDS: DULoxetine HCl 60 MG CAPSULE.DR PO (09:19)
[2023-07-11] MEDS: guaiFENesin DM 600/30 1 TAB TAB.ER.12H 2 TAB PO ×2 (09:19→21:15)
[2023-07-11] MEDS: Metoprolol Succinate ER 100 MG TAB.ER.24H PO (09:20)
[2023-07-11] MEDS: lisinopriL 2.5 MG TABLET PO (09:20)
[2023-07-11] MEDS: Furosemide 40 MG TABLET 20 MG PO ×2 (09:20→21:23)
[2023-07-11] MEDS: Omeprazole 40 MG CAPSULE.DR PO (09:20)
[2023-07-11] MEDS: 0.9 % Sodium Chloride Flush 3 ML SYRINGE IVFLUSH (09:21)
[2023-07-11] MEDS: Doxycycline Hyclate 100 MG in 0.9 % Sodium Chloride 250 ML 166.67 MG IV (09:26)
--- NOTE | 2023-07-11 09:50 | HO.PM.IMPN ---
Subjective Subjective Date of Service: 07/11/23 Review of Systems Follow up asthma doing better still with some exp wheezing Physical Exam Vital Signs: Vital Signs: Last Vital Signs Temp 97.0 F 07/11/23 07:44 Pulse 69 07/11/23 07:44 Resp 20 07/11/23 07:44 BP 144/85 H 07/11/23 07:44 Pulse Ox 91 L 07/11/23 07:44 O2 Del Method Room Air 07/11/23 07:44 O2 Flow Rate 2 07/08/23 11:52 BMI result Body Mass Index 29.8 Appearing in no acute distress lung sounds exp wheezing heart regular rate rhythm, clear S1, S2 positive bowel sounds, abdomen is soft, nontender neuro patient is alert x3, no focal deficits Objective Data Active Medications Acetaminophen (Acetaminophen 325 Mg Tablet) 975 mg PO Q6H PRN PRN Reason: headache, pain and fever Last Admin: 07/07/23 22:24 Dose: 975 mg Documented By: ELIN Albuterol Sulfate (Albuterol Sulfate (0.083%) 2.5 Mg/3 Ml Vial.Neb) 2.5 mg INHALE Q4H PRN PRN Reason: Shortness of Breath/Wheezing Last Admin: 07/10/23 02:06 Dose: 2.5 mg Documented By: LATRICE Albuterol/Ipratropium (Albuterol/Iprat 2.5/0.5mg 3 Ml Ampul.Neb) 3 ml INHALE RQ4H WHILE AWAKE [facility] Last Admin: 07/11/23 07:43 Dose: 3 ml Documented By: FREYA Apixaban (Apixaban 5 Mg Tablet) 5 mg PO BID [facility] Last Admin: 07/11/23 09:19 Dose: 5 mg Documented By: DANIELLA Docusate Sodium (Docusate Sodium 100 Mg Capsule) 100 mg PO BID [facility] Last Admin: 07/11/23 09:19 Dose: 100 mg Documented By: DANIELLA Duloxetine HCl (Duloxetine Hcl 60 Mg Capsule.Dr) 60 mg PO DAILY [facility] Last Admin: 07/11/23 09:19 Dose: 60 mg Documented By: DANIELLA Fluticasone/Vilanterol (Fluticasone/Vilanterol 200/25 Blst.W.Dev) 1 puff INHALE RDAILY [facility] Last Admin: 07/11/23 07:43 Dose: 1 puff Documented By: FREYA Furosemide (Furosemide 40 Mg Tablet) 20 mg PO BID [facility]; Protocol Last Admin: 07/11/23 09:20 Dose: 20 mg Documented By: DANIELLA Guaifenesin/Dextromethorphan (Guaifenesin Dm 600/30 1 Tab Tab.Er.12h) 2 tab PO BID [facility] Last Admin: 07/11/23 09:19 Dose: 2 tab Documented By: DANIELLA Doxycycline Hyclate 100 mg/ (Sodium Chloride) 250 mls @ 166.67 mls/hr IV Q12H [facility] Last Admin: 07/11/23 09:26 Dose: 166.67 mls/hr Documented By: DANIELLA Lisinopril (Lisinopril 2.5 Mg Tablet) 2.5 mg PO DAILY [facility]; Protocol Last Admin: 07/11/23 09:20 Dose: 2.5 mg Documented By: DANIELLA Lorazepam (Lorazepam 0.5 Mg Tablet) 0.5 mg PO BID PRN PRN Reason: Anxiety Last Admin: 07/11/23 03:51 Dose: 0.5 mg Documented By: BARRY Methylprednisolone Sodium Succinate (Methylprednisolone Sod Succ 40 Mg/Ml Vial) 40 mg IVPUSH Q8H [facility] Last Admin: 07/11/23 06:11 Dose: 40 mg Documented By: BARRY Metoprolol Succinate (Metoprolol Succinate Er 100 Mg Tab.Er.24h) 100 mg PO DAILY [facility]; Protocol Last Admin: 07/11/23 09:20 Dose: 100 mg Documented By: DANIELLA Montelukast Sodium (Montelukast Sodium 10 Mg Tablet) 10 mg PO BEDTIME [facility] Last Admin: 07/10/23 21:13 Dose: 10 mg Documented By: BARRY Omeprazole (Omeprazole 40 Mg Capsule.Dr) 40 mg PO DAILY [facility] Last Admin: 07/11/23 09:20 Dose: 40 mg Documented By: DANIELLA Polyethylene Glycol (Polyethylene Glycol 3350 17 Gm Powd.Pack) 17 gm PO DAILY PRN PRN Reason: Constipation Sodium Chloride (0.9 % Sodium Chloride Flush 3 Ml Syringe) 3 ml IVFLUSH QSHIFT [facility] Last Admin: 07/11/23 09:21 Dose: 3 ml Documented By: DANIELLA Sodium Chloride (Sodium Chloride 0.65 % Nasal 44 Ml Sprbtl) 1 spray NOSTRIL-B Q1H PRN PRN Reason: Dry Nasal Passages Last Admin: 07/08/23 21:06 Dose: 1 spray Documented By: ITZEL Tizanidine HCl (Tizanidine Hcl 4 Mg Tablet) 4 mg PO TID PRN PRN Reason: headache Labs 07/07/23 06:14 07/07/23 06:14 Assessment and Plan (1) Asthma with acute exacerbation: Status: Acute Plan This is a 63 years old woman with history of atrial fibrillation on Eliquis, asthma, hypertension, depression who presents with shortness of breath found to be hypoxic admitted with asthma exacerbation: Acute hypoxic respiratory failure secondary to acute exacerbation of asthma and acute bronchitis CXR negative for pneumonia, RPP negative Continue bronchodilator therapy, and solu-medrol Blood cultures negative to date continue IV doxycycline started 07/08 able to be weaned off oxygen and is currently on room air Paroxysmal Atrial fibrillation. in sinus rhythm Continue Eliquis and metoprolol. Essential hypertension. Continue metoprolol and lisinopril. History of CHF, unspecified compensated. BNP <10 Continue furosemide. Depression. Continue duloxetine. GERD. Continue omeprazole. of note patient has outpatient sleep study and PTFs scheduled next week DVT prophylaxis: Rafiq Attending Dr. Rodarte Code status: Full Requires ongoing inpatient hospitalization for hypoxic respiratory failure secondary to bronchial asthma treatment with supplemental oxygen, bronchodilator therapy and IV steroids. She will also require close monitoring of vital signs. Due to history of intubation will need close monitoring of respiratory status. Quality Stroke Does the patient have a stroke diagnosis?: No VTE Prior VTE?: No VTE Risk Level:: Medical - moderate - high VTE Device Contraindication: Treatment Not Indicated VTE Drug Contraindication: N/A - Med Ordered
--- NOTE | 2023-07-11 15:05 | MHC.CM.PN ---
Per MD rounds no dc today. Patient continues to require IV ABX steroids and supplemental oxygen. DPHome self care. She will arrange for transportation home.
[2023-07-11] MEDS: Montelukast Sodium 10 MG TABLET PO (21:14)
[2023-07-12] VITALS (11 sets, daily range): BP systolic 110–145; BP diastolic 67–78; PULSE 64–83; RESP 16–20; TEMP 36.1–37.1; O2SAT 91–95
[2023-07-12] MEDS: methylPREDNISolone Sod Succ 40 MG/ML VIAL IVPUSH ×3 (01:10→16:36)
[2023-07-12] MEDS: Doxycycline Hyclate 100 MG in 0.9 % Sodium Chloride 250 ML 166.67 MG IV ×2 (01:17→10:44)
[2023-07-12] MEDS: Fluticasone/Vilanterol 200/25 BLST.W.DEV 1 PUFF INHALE (07:44)
[2023-07-12] MEDS: Albuterol/Iprat 2.5/0.5MG 3 ML AMPUL.NEB INHALE ×4 (07:45→19:49)
[2023-07-12] MEDS: Metoprolol Succinate ER 100 MG TAB.ER.24H PO (08:26)
[2023-07-12] MEDS: Furosemide 40 MG TABLET 20 MG PO ×2 (08:26→21:09)
[2023-07-12] MEDS: lisinopriL 2.5 MG TABLET PO (08:26)
[2023-07-12] MEDS: guaiFENesin DM 600/30 1 TAB TAB.ER.12H 2 TAB PO ×2 (08:27→21:10)
[2023-07-12] MEDS: DULoxetine HCl 60 MG CAPSULE.DR PO (08:27)
[2023-07-12] MEDS: Docusate Sodium 100 MG CAPSULE PO ×2 (08:28→21:09)
[2023-07-12] MEDS: Omeprazole 40 MG CAPSULE.DR PO (08:28)
[2023-07-12] MEDS: 0.9 % Sodium Chloride Flush 3 ML SYRINGE IVFLUSH ×2 (08:28→16:38)
[2023-07-12] MEDS: Apixaban 5 MG TABLET PO ×2 (08:28→21:08)
--- NOTE | 2023-07-12 09:14 | P.PNIM_ITS ---
Subjective Subjective Date of Service: 07/12/23 Review of Systems Follow up asthma doing better still with some exp wheezing Physical Exam 2 Vital Signs: Vital Signs: Last Vital Signs Temp 98.6 F 07/12/23 07:08 Pulse 82 07/12/23 08:26 Resp 16 07/12/23 07:45 BP 135/78 07/12/23 08:26 Pulse Ox 94 07/12/23 07:08 O2 Del Method Room Air 07/12/23 07:08 O2 Flow Rate 2 07/08/23 11:52 BMI result Body Mass Index 29.8 Appearing in no acute distress lung sounds exp wheezing heart regular rate rhythm, clear S1, S2 positive bowel sounds, abdomen is soft, nontender neuro patient is alert x3, no focal deficits Objective Data Active Medications Acetaminophen (Acetaminophen 325 Mg Tablet) 975 mg PO Q6H PRN PRN Reason: headache, pain and fever Last Admin: 07/07/23 22:24 Dose: 975 mg Documented By: ELIN Albuterol Sulfate (Albuterol Sulfate (0.083%) 2.5 Mg/3 Ml Vial.Neb) 2.5 mg INHALE Q4H PRN PRN Reason: Shortness of Breath/Wheezing Last Admin: 07/10/23 02:06 Dose: 2.5 mg Documented By: LATRICE Albuterol/Ipratropium (Albuterol/Iprat 2.5/0.5mg 3 Ml Ampul.Neb) 3 ml INHALE RQ4H WHILE AWAKE REPL[facility] Last Admin: 07/12/23 07:45 Dose: 3 ml Documented By: FREYA Apixaban (Apixaban 5 Mg Tablet) 5 mg PO BID [facility] Last Admin: 07/12/23 08:28 Dose: 5 mg Documented By: HEATHER Docusate Sodium (Docusate Sodium 100 Mg Capsule) 100 mg PO BID [facility] Last Admin: 07/12/23 08:28 Dose: 100 mg Documented By: HEATHER Duloxetine HCl (Duloxetine Hcl 60 Mg Capsule.Dr) 60 mg PO DAILY [facility] Last Admin: 07/12/23 08:27 Dose: 60 mg Documented By: HEATHER Fluticasone/Vilanterol (Fluticasone/Vilanterol 200/25 Blst.W.Dev) 1 puff INHALE RDAILY [facility] Last Admin: 07/12/23 07:44 Dose: 1 puff Documented By: FREYA Furosemide (Furosemide 40 Mg Tablet) 20 mg PO BID [facility]; Protocol Last Admin: 07/12/23 08:26 Dose: 20 mg Documented By: HEATHER Guaifenesin/Dextromethorphan (Guaifenesin Dm 600/30 1 Tab Tab.Er.12h) 2 tab PO BID [facility] Last Admin: 07/12/23 08:27 Dose: 2 tab Documented By: HEATHER Doxycycline Hyclate 100 mg/ (Sodium Chloride) 250 mls @ 166.67 mls/hr IV Q12H [facility] Last Infusion: 07/12/23 03:28 Dose: Infused Documented By: BARRY Lisinopril (Lisinopril 2.5 Mg Tablet) 2.5 mg PO DAILY [facility]; Protocol Last Admin: 07/12/23 08:26 Dose: 2.5 mg Documented By: HEATHER Lorazepam (Lorazepam 0.5 Mg Tablet) 0.5 mg PO BID PRN PRN Reason: Anxiety Last Admin: 07/11/23 22:01 Dose: 0.5 mg Documented By: BARRY Methylprednisolone Sodium Succinate (Methylprednisolone Sod Succ 40 Mg/Ml Vial) 40 mg IVPUSH Q8H [facility] Last Admin: 07/12/23 06:25 Dose: 40 mg Documented By: BARRY Metoprolol Succinate (Metoprolol Succinate Er 100 Mg Tab.Er.24h) 100 mg PO DAILY [facility]; Protocol Last Admin: 07/12/23 08:26 Dose: 100 mg Documented By: HEATHER Montelukast Sodium (Montelukast Sodium 10 Mg Tablet) 10 mg PO BEDTIME [facility] Last Admin: 07/11/23 21:14 Dose: 10 mg Documented By: BARRY Omeprazole (Omeprazole 40 Mg Capsule.Dr) 40 mg PO DAILY [facility] Last Admin: 07/12/23 08:28 Dose: 40 mg Documented By: HEATHER Polyethylene Glycol (Polyethylene Glycol 3350 17 Gm Powd.Pack) 17 gm PO DAILY PRN PRN Reason: Constipation Sodium Chloride (0.9 % Sodium Chloride Flush 3 Ml Syringe) 3 ml IVFLUSH QSHIFT [facility]PL[facility]ED [facility] Last Admin: 07/12/23 08:28 Dose: 3 ml Documented By: CHADWICKTEKJuanita Sodium Chloride (Sodium Chloride 0.65 % Nasal 44 Ml Sprbtl) 1 spray NOSTRIL-B Q1H PRN PRN Reason: Dry Nasal Passages Last Admin: 07/08/23 21:06 Dose: 1 spray Documented By: ITZEL Tizanidine HCl (Tizanidine Hcl 4 Mg Tablet) 4 mg PO TID PRN PRN Reason: headache Labs 07/07/23 06:14 07/07/23 06:14 Microbiology Microbiology Results: Microbiology 07/06/23 23:59 Blood Culture - Final Blood - Venous No growth after 5 days. 07/06/23 23:01 Blood Culture - Final Blood - Venous No growth after 5 days. Assessment and Plan (1) Asthma with acute exacerbation: Status: Acute Plan This is a 63 years old woman with history of atrial fibrillation on Eliquis, asthma, hypertension, depression who presents with shortness of breath found to be hypoxic admitted with asthma exacerbation: Acute hypoxic respiratory failure secondary to acute exacerbation of asthma and acute bronchitis CXR negative for pneumonia, RPP negative Continue bronchodilator therapy, and solu-medrol Blood cultures negative to date continue IV doxycycline started 07/08 able to be weaned off oxygen and is currently on room air but down to 89% with ambulation Paroxysmal Atrial fibrillation. in sinus rhythm Continue Eliquis and metoprolol. Essential hypertension. Continue metoprolol and lisinopril. History of CHF, unspecified compensated. BNP <10 Continue furosemide. Depression. Continue duloxetine. GERD. Continue omeprazole. of note patient has outpatient sleep study and PTFs scheduled next week DVT prophylaxis: Rafiq Attending Dr. Rodarte Code status: Full Requires ongoing inpatient hospitalization for hypoxic respiratory failure secondary to bronchial asthma treatment with supplemental oxygen, bronchodilator therapy and IV steroids. She will also require close monitoring of vital signs. Due to history of intubation will need close monitoring of respiratory status. Quality Stroke Does the patient have a stroke diagnosis?: No VTE Prior VTE?: No VTE Risk Level:: Medical - moderate - high VTE Device Contraindication: Treatment Not Indicated VTE Drug Contraindication: N/A - Med Ordered
[2023-07-12] MEDS: Montelukast Sodium 10 MG TABLET PO (21:08)
[2023-07-13] MEDS: Doxycycline Hyclate 100 MG in 0.9 % Sodium Chloride 250 ML 166.67 MG IV (00:07)
[2023-07-13] MEDS: LORazepam 0.5 MG TABLET PO (00:16)
[2023-07-13] MEDS: Acetaminophen 325 MG TABLET 975 MG PO (00:17)
[2023-07-13] MEDS: methylPREDNISolone Sod Succ 40 MG/ML VIAL IVPUSH ×2 (01:23→06:47)
[2023-07-13 03:40] VITALS: BP 137/65; PULSE 79; RESP 20; TEMP 36.1; O2SAT 93
[2023-07-13 07:02] VITALS: BP 135/62; PULSE 72; RESP 20; TEMP 36.4; O2SAT 93
--- NOTE | 2023-07-13 07:54 | PM.DS ---
DS: Providers Provider Date of Service: 07/13/23 Date of admission: 07/07/23 05:23 Primary care physician: Carli Chamberlain MD DS: Diagnosis Discharge Diagnosis (1) Asthma with acute exacerbation: Status: Acute DS: Summary Hospital Course Hospital Course: History and physical as per admitting provider. Ree Harris is a 63 years old woman with past medical history significant for asthma, atrial fibrillation on chronic anticoagulation with Eliquis, depression and CHF was brought to the emergency department via EMS due to worsening shortness of breath over the last 2 days later with productive cough greenish sputum and wheezing. She denied chest pain, fevers chills. She did not report any gastrointestinal or genitourinary symptoms. She uses Spiriva and Symbicort (ran out of it recently). Per EMS patient was found to have O2 sats of 76-88% on room air and was given a breathing treatment with DuoNeb was placed on a non-rebreather mask. Denies tobacco smoking, alcohol abuse or illicit drug use. In the ED, she was found to have tachypnea and mild degree of tachycardia. She is currently requiring 4 L/min supplemental oxygen via mask. Blood workup showed no leukocytosis. There is eosinophilia. Hemoglobin and platelets are normal. CMP is normal except for slight elevation of ALT and alk-phos. BNP is normal. Viral testing for influenza, COVID-19 and RSV is negative. CXR shows scarring or subsegmental atelectasis of the left lower base. Physical Exam Vital Signs: Vital Signs: Last Vital Signs Temp 97.5 F 07/13/23 07:02 Pulse 72 07/13/23 07:02 Resp 20 07/13/23 07:02 BP 135/62 07/13/23 07:02 Pulse Ox 93 07/13/23 07:02 O2 Del Method Room Air 07/13/23 07:02 O2 Flow Rate 2 07/08/23 11:52 BMI result Body Mass Index 29.8 Discharge Plan Discharge Anticipated Discharge Date/Time: 07/13/23 07:52 Patient Disposition: Home, Self-Care Discharge Diagnosis: Asthma exacerbation Referrals: Carli Chamberlain MD [Primary Care Provider] - 1 Week Discharge Medications: New prednisone 10 mg tablet See Taper PO DIRECTED Qty: 30 0RF Taper: Prednisone 40 mg daily for 3 Days and 0 Hour 30 mg daily for 3 Days and 0 Hour 20 mg daily for 3 Days and 0 Hour 10 mg daily for 3 Days and 0 Hour Rx Instructions: see taper instructions Continued albuterol sulfate [Proventil HFA] 90 mcg/actuation HFA aerosol inhaler 2 puff inhalation Q4-6H PRN (Reason: shortness of breath or wheezing) Qty: 8.5 0RF duloxetine [Cymbalta] 60 mg capsule,delayed release(DR/EC) 60 mg PO DAILY Qty: 10 0RF metoprolol succinate 100 mg tablet extended release 24 hr 100 mg PO DAILY Qty: 10 0RF tizanidine 4 mg tablet 4 mg PO TID PRN (Reason: Headache) omeprazole 40 mg capsule,delayed release(DR/EC) 40 mg PO DAILY lisinopril 2.5 mg tablet 2.5 mg PO DAILY budesonide-formoterol [Symbicort] 160-4.5 mcg/actuation HFA aerosol inhaler 2 puff INHALATION BID Eliquis 5 mg tablet 5 mg PO BID tiotropium bromide [Spiriva with HandiHaler] 18 mcg capsule, w/inhalation device 1 cap inhalation DAILY montelukast 10 mg Tablet 10 mg PO DAILY furosemide 20 mg Tablet 20 mg PO BID ferrous sulfate 324 mg (65 mg iron) Tablet,Delayed Release (Dr/Ec) 324 mg PO DAILY lorazepam [Ativan] 0.5 mg Tablet 0.5 mg PO BID PRN (Reason: Anxiety) tezepelumab-ekko 210 mg/1.91 mL (110 mg/mL) Syringe 210 mg SUBCUT Q4W Diet: Advance to usual diet Activity on Discharge: As tolerated Stand Alone Forms: Patient Portal Discharge page Print Language: [place] Care Plan Goals: Complete prednisone taper Health Concerns: Asthma exacerbation Plan of Treatment: Follow-up with primary care provider as needed Take all medications as prescribed Assessment: See discharge summary
[2023-07-13 08:07] VITALS: PULSE 72; RESP 18; O2SAT 93
[2023-07-13] MEDS: Fluticasone/Vilanterol 200/25 BLST.W.DEV 1 PUFF INHALE (08:07)
[2023-07-13] MEDS: Albuterol/Iprat 2.5/0.5MG 3 ML AMPUL.NEB INHALE (08:07)
[2023-07-13 08:53] VITALS: BP 135/62; PULSE 72
[2023-07-13] MEDS: guaiFENesin DM 600/30 1 TAB TAB.ER.12H 2 TAB PO (08:53)
[2023-07-13] MEDS: Omeprazole 40 MG CAPSULE.DR PO (08:53)
[2023-07-13] MEDS: lisinopriL 2.5 MG TABLET PO (08:53)
[2023-07-13] MEDS: Apixaban 5 MG TABLET PO (08:53)
[2023-07-13] MEDS: Metoprolol Succinate ER 100 MG TAB.ER.24H PO (08:53)
[2023-07-13] MEDS: DULoxetine HCl 60 MG CAPSULE.DR PO (08:53)
[2023-07-13 08:54] VITALS: BP 135/62
[2023-07-13] MEDS: Furosemide 40 MG TABLET 20 MG PO (08:54)
[2023-07-13] MEDS: Docusate Sodium 100 MG CAPSULE PO (08:54)
[2023-07-13] MEDS: 0.9 % Sodium Chloride Flush 3 ML SYRINGE IVFLUSH (08:57)
--- NOTE | 2023-07-13 09:33 | MHC.CM.PN ---
Patient is discharged to home self care. She has arranged for a family member to provide transport home.
--- NOTE | 2023-07-13 10:14 | PM.DS ---
DS: Providers Provider Date of Service: 07/13/23 Date of admission: 07/07/23 05:23 Primary care physician: Carli Chamberlain MD DS: Diagnosis Discharge Diagnosis (1) Asthma with acute exacerbation: Status: Acute DS: Summary Hospital Course Hospital Course: History and physical as per admitting provider. Ree Harris is a 63 years old woman with past medical history significant for asthma, atrial fibrillation on chronic anticoagulation with Eliquis, depression and CHF was brought to the emergency department via EMS due to worsening shortness of breath over the last 2 days later with productive cough greenish sputum and wheezing. She denied chest pain, fevers chills. She did not report any gastrointestinal or genitourinary symptoms. She uses Spiriva and Symbicort (ran out of it recently). Per EMS patient was found to have O2 sats of 76-88% on room air and was given a breathing treatment with DuoNeb was placed on a non-rebreather mask. Denies tobacco smoking, alcohol abuse or illicit drug use. In the ED, she was found to have tachypnea and mild degree of tachycardia. She is currently requiring 4 L/min supplemental oxygen via mask. Blood workup showed no leukocytosis. There is eosinophilia. Hemoglobin and platelets are normal. CMP is normal except for slight elevation of ALT and alk-phos. BNP is normal. Viral testing for influenza, COVID-19 and RSV is negative. CXR shows scarring or subsegmental atelectasis of the left lower base. 63-year-old woman treated for acute hypoxic respiratory failure secondary to acute exacerbation of asthma and acute bronchitis. Chest x-ray negative for pneumonia, RPP negative. Treated with bronchodilator therapy and IV Solu-Medrol. Blood cultures remained negative to date. Treated with IV doxycycline for bronchitis. Weaned off oxygen. Plan is to discharge patient home with prednisone taper. Patient also requested she refills for her Cymbalta, Eliquis, metoprolol and Ativan as she is out of town and does not have those medications, sent to pharmacy. Paroxysmal atrial fibrillation. Has remained in sinus rhythm. Continue Eliquis and metoprolol Hypertension. Stable blood pressure during admission. Continue metoprolol lisinopril Unspecified CHF. Continue Lasix Depression. Continue duloxetine GERD. Continue omeprazole Time Attestation Discharge Coordination Time (in mins): 35 Quality: Safe Use of Opioids Does Pt have an Active Cancer Diagnosis on the Problem List?: No Quality: Stroke Does the patient have a stroke diagnosis?: No Physical Exam Vital Signs: Vital Signs: Last Vital Signs Temp 97.5 F 07/13/23 07:02 Pulse 72 07/13/23 08:53 Resp 18 07/13/23 08:07 BP 135/62 07/13/23 08:54 Pulse Ox 93 07/13/23 07:02 O2 Del Method Room Air 07/13/23 07:02 O2 Flow Rate 2 07/08/23 11:52 BMI result Body Mass Index 29.8 Appearing in no acute distress head is normocephalic atraumatic eyes pupils are PERRLA sclera is anicteric mouth throat mucous membranes are intact and moist neck is supple no lymphadenopathy, no JVD noted lung sounds are clear to auscultation heart regular rate rhythm, clear S1, S2 positive bowel sounds, abdomen is soft, nontender neuro patient is alert x3, no focal deficits Discharge Plan Discharge Anticipated Discharge Date/Time: 07/13/23 07:52 Patient Disposition: Home, Self-Care Discharge Diagnosis: Asthma exacerbation Referrals: Carli Chamberlain MD [Primary Care Provider] - 1 Week Discharge Medications: New prednisone 10 mg tablet See Taper PO DIRECTED Qty: 30 0RF Taper: Prednisone 40 mg daily for 3 Days and 0 Hour 30 mg daily for 3 Days and 0 Hour 20 mg daily for 3 Days and 0 Hour 10 mg daily for 3 Days and 0 Hour Rx Instructions: see taper instructions Continued albuterol sulfate [Proventil HFA] 90 mcg/actuation HFA aerosol inhaler 2 puff inhalation Q4-6H PRN (Reason: shortness of breath or wheezing) Qty: 8.5 0RF tizanidine 4 mg tablet 4 mg PO TID PRN (Reason: Headache) omeprazole 40 mg capsule,delayed release(DR/EC) 40 mg PO DAILY lisinopril 2.5 mg tablet 2.5 mg PO DAILY budesonide-formoterol [Symbicort] 160-4.5 mcg/actuation HFA aerosol inhaler 2 puff INHALATION BID tiotropium bromide [Spiriva with HandiHaler] 18 mcg capsule, w/inhalation device 1 cap inhalation DAILY montelukast 10 mg Tablet 10 mg PO DAILY furosemide 20 mg Tablet 20 mg PO BID ferrous sulfate 324 mg (65 mg iron) Tablet,Delayed Release (Dr/Ec) 324 mg PO DAILY tezepelumab-ekko 210 mg/1.91 mL (110 mg/mL) Syringe 210 mg SUBCUT Q4W metoprolol succinate 100 mg tablet extended release 24 hr 100 mg PO DAILY Qty: 10 0RF lorazepam [Ativan] 0.5 mg Tablet 0.5 mg PO BID PRN (Reason: Anxiety) Qty: 6 0RF duloxetine [Cymbalta] 60 mg capsule,delayed release(DR/EC) 60 mg PO DAILY Qty: 10 0RF Eliquis 5 mg tablet 5 mg PO BID Qty: 60 0RF Discharge Orders: Discharge Order (Routine); Ordered 07/13/23 Ordered By: Sandy Sandy Diet: Advance to usual diet Activity on Discharge: As tolerated Stand Alone Forms: Patient Portal Discharge page Print Language: Romanian Care Plan Goals: Complete prednisone taper Health Concerns: Asthma exacerbation Plan of Treatment: Follow-up with primary care provider as needed Take all medications as prescribed Assessment: See discharge summary
== END 2023-07-13 10:51 | disposition home or self-care (01) | DRG 202 ==
LOC: HO.ED 07-07 01:44 → HO.EDOVER 07-07 05:42 → HO.IMC 07-07 17:27
PROVIDERS: Physician Assistant Medical; Admitting Provider Internal Medicine; Emergency Provider Emergency Medicine Emergency Medical Services; PCP Family Medicine; Visit Provider Nurse Practitioner Acute Care
DX: J45.51 Severe persistent asthma with (acute) exacerbation (principal); J96.01 Acute respiratory failure with hypoxia; J20.9 Acute bronchitis, unspecified; I48.0 Paroxysmal atrial fibrillation; F32.A Depression, unspecified; I11.0 Hypertensive heart disease with heart failure; I50.9 Heart failure, unspecified; K21.9 Gastro-esophageal reflux disease without esophagitis; Z79.01 Long term (current) use of anticoagulants; Z79.899 Other long term (current) drug therapy
CPT/HCPCS: 0241U; 36415; 71045; 80048; 80053; 83605; 83690; 83735; 83880; 85025; 85610; 85730; 87040; 87633; 93005; 94640; 99285; J2919; J3475

== ENCOUNTER 2023-07-07 05:23 | Outpatient (BNV) | payer OTHER, SELFPAY | END 2023-07-07 08:04 | PROVIDERS: Admitting Provider Internal Medicine; Emergency Provider Emergency Medicine Emergency Medical Services; Visit Provider Internal Medicine | DX: R94.31 Abnormal electrocardiogram [ECG] [EKG] (principal) | CPT/HCPCS: 93010 ==

== ENCOUNTER → 2023-07-07 05:23 | Outpatient (BNV) | payer OTHER, SELFPAY | PROVIDERS: Admitting Provider Internal Medicine; Emergency Provider Emergency Medicine Emergency Medical Services; Visit Provider Internal Medicine | DX: J45.51 Severe persistent asthma with (acute) exacerbation (principal) | CPT/HCPCS: 99223; 99232; 99233; 99239 ==

== ENCOUNTER 2024-04-13 17:42 | Emergency (ER) | payer MEDICAID, SELFPAY ==
--- NOTE | ~2024-04-13 | XR_ITS ---
CLINICAL HISTORY: left sided pain 3 views lumbar spine Comparison: None Findings: No acute compression fractures.Subtle degenerative anterolisthesis L4 relative to L5. Degenerative facet arthropathy L4-L5. Disc spaces are maintained. Pedicles and transverse processes intact. Osteitis pubis. Lordotic curvature is preserved. Surgical clips right upper quadrant.Calcified atherosclerotic disease. Sacroiliac joints unremarkable. Impression: 1. No acute compression fractures. Degenerative spondylosis/ listhesis as described. This document has been electronically signed by: Tate Givens MD on 04/13/2024 20:47:13
[2024-04-13 17:48] VITALS: BP 128/84; PULSE 78; O2SAT 95
[2024-04-13 18:50] VITALS: BP 104/54; PULSE 70; RESP 16; TEMP 36.9; O2SAT 95; BMI 26.9
--- NOTE | 2024-04-13 18:50 | ED.GENADULT ---
HPI - General Adult General Chief complaint: Back Pain/Injury Stated complaint: BACK PAIN Time Seen by Provider: 04/14/24 00:59 Source: patient Mode of arrival: EMS Limitations: no limitations History of Present Illness ED Provider: Dr. Jean Claude Seth HPI narrative: 64-year-old female with a history of GERD, atrial fibrillation on Eliquis, hypertension, depression, congestive heart failure, asthma who presents emergency department for evaluation of severe, bilateral, lower back pain. She states she woke up on the day of arrival with lower back pain. She states that the pain is a sharp stabbing pain which is greater than 10/10. The pain is worse with movement. The pain does not radiate to her groin or down her legs. She denied frequency, urgency or dysuria. She was had no loss of bowel or bladder control. She denied numbness or weakness of her lower extremities. She states this is a 1st episode of this type of pain. The patient did take ibuprofen 800 mg orally with no relief for pain. Related Data Home Medications ?Medication ?Instructions ?Recorded ?Confirmed budesonide-formoterol HFA 160 2 puff inhalation BID 07/07/23 07/07/23 mcg-4.5 mcg/actuation aerosol inhaler (Symbicort) ferrous sulfate 324 mg (65 mg 324 mg PO DAILY 07/07/23 07/07/23 iron) tablet,delayed release furosemide 20 mg tablet 20 mg PO BID 07/07/23 07/07/23 lisinopril 2.5 mg tablet 2.5 mg PO DAILY 07/07/23 07/07/23 montelukast 10 mg tablet 10 mg PO DAILY 07/07/23 07/07/23 omeprazole 40 mg capsule,delayed 40 mg PO DAILY 07/07/23 07/07/23 release tezepelumab-ekko 210 mg/1.91 mL 210 mg subcut Q4W 07/07/23 07/07/23 (110 mg/mL) subcutaneous syringe tiotropium bromide 18 mcg capsule 1 cap inhalation DAILY 07/07/23 07/07/23 with inhalation device (Spiriva with HandiHaler) tizanidine 4 mg tablet 4 mg PO TID PRN Headache 07/07/23 07/07/23 Previous Rx's ?Medication ?Instructions ?Recorded albuterol sulfate 90 mcg/actuation 2 puff inhalation Q4-6H PRN 11/06/20 aerosol inhaler (Proventil HFA) shortness of breath or wheezing #8.5 grams apixaban 5 mg tablet (Eliquis) 5 mg PO BID #60 tabs 07/13/23 duloxetine 60 mg capsule,delayed 60 mg PO DAILY #10 caps 07/13/23 release (Cymbalta) lorazepam 0.5 mg tablet (Ativan) 0.5 mg PO BID PRN Anxiety #6 tabs 07/13/23 metoprolol succinate 100 mg 100 mg PO DAILY #10 tabs 07/13/23 tablet,extended release 24 hr prednisone 10 mg tablet See Taper PO DIRECTED #30 tabs 07/13/23 cyclobenzaprine 5 mg tablet 5 mg PO TID PRN muscle spasm or 04/14/24 pain #14 tabs oxycodone 5 mg tablet 5 mg PO Q6H PRN pain #10 tabs 04/14/24 Allergies Allergy/AdvReac Type Severity Reaction Status Date / Time aspirin Allergy Unknown Verified 04/13/24 18:52 fluoxetine [From Prozac] Allergy Unknown Verified 04/13/24 18:52 Review of Systems Review of Systems: Yes all other systems are reviewed and are negative [facility] Past Medical History [facility] Narrative: Social history: She denies tobacco, alcohol and drug use. Medical History (Updated 04/14/24 @ 01:16 by Jean Claude Seth MD) GERD (gastroesophageal reflux disease) Atrial fibrillation Essential hypertension Depression Heart failure Asthma Social History Social History Household Members: Children Housing: House Do you presently have visiting nurse or other home services: No Patient Tobacco Use Status: Never used Tobacco Advance Directives: No Advance Directives Information Provided: Yes Do you have a plan to hurt others: No Plan service: No Physical Exam ED Vital Signs: Vital Signs - 24 hr 04/13/24 18:50 04/13/24 23:06 Temperature 98.5 F 97.7 F Pulse Rate 70 69 Respiratory Rate 16 18 Blood Pressure 104/54 L 131/72 Pulse Oximetry 95 100 Oxygen Delivery Method Room Air Room Air BMI result Body Mass Index 26.9 Vital signs were normal Exam: General: Awake, alert in no distress, patient does have difficulty sitting up on the stretcher secondary to her lower back pain Head: Normocephalic, atraumatic EENT: PERRL, Lids normal, sclera normal, conjunctiva normal, nose normal , ears normal, throat without erythema or exudates Neck: Supple, no adenopathy Lung: breath sounds symmetric, no wheezing, rales or rhonchi Chest: symmetric movement, nontender Heart: regular rate and rhythm, normal S1, S2 no murmurs or rubs Abdomen: soft, non-tender, nondistended, normal bowel sounds Back: Patient was negative straight leg raises bilaterally. Patient has moderate to severe tenderness palpation over the SI joints bilaterally in the lower lumbar sacral muscles bilaterally, there he was spasm of these muscles as well. There is no herpetic lesions noted on her lower back. Extremities: no deformities, moves all extremities symmetrically Neuro: Awake, alert, oriented, normal speech, moves all extremities symmetrically Course Course Course Narrative: This is a rapid medical exam performed by Reinaldo Lake NP: Additional HPI, ROS, PE not included below will be deferred to primary provider. Patient is a 64-year-old female with history of afib on Eliquis, heart failure, asthma, GERD, HTN, depression presenting with left lower back pain worse with movement since this morning. Describes pain as stabbing. Denies fall or other trauma. Denies saddle anesthesia, bowel/bladder incontinence. Plan: x-ray, UA Medications Administered Discontinued Medications Generic Name Dose Route Start Last Admin Trade Name Freq PRN Reason Stop Dose Admin Acetaminophen 975 mg 04/14/24 01:13 04/14/24 01:19 Acetaminophen 325 Mg Tablet PO 04/14/24 01:14 975 mg ONCE STA Administration Oxycodone HCl 10 mg 04/14/24 01:13 04/14/24 01:20 Oxycodone Hcl Immed Release 5 Mg Tablet PO 04/14/24 01:14 10 mg ONCE ONE Administration Medical Decision Making Medical Decision Making MDM Narrative: 64-year-old female with a history of GERD, atrial fibrillation on Eliquis, hypertension, depression, congestive heart failure, asthma who presents emergency department for evaluation of severe, bilateral, lower back pain. Patient woke up with this pain. She states the pain is worse with movement. She was had no fever, chills, loss of bowel or bladder control, numbness or weakness in her lower extremities. Patient took ibuprofen with no relief for pain. Differential diagnosis: ?Includes but is not limited to musculoskeletal strain, musculoskeletal sprain, degenerative disc disease, degenerative joint disease, renal colic ureteral stone, paraspinal abscess, urinary tract infections Course: 01:27 My interpretation patient's laboratory evaluation is as follows: Urinalysis positive for leukocyte esterase. Microscopic revealed 3-5 RBCs, 6-10 WBCs, 0 2 squamous cells, no bacteria-not consistent with a UTI. The patient's physical examination did reveal significant tenderness palpation of her SI joints and paraspinal muscles in the lower back region. She also has spasm of these muscles. Presentation is consistent with lumbar strain. Patient was given Tylenol 975 mg orally and oxycodone 10 mg orally. I did tell the patient she should not take NSAIDs while she was on Eliquis since he was medications can cause significant GI bleed. Patient was discharged with a prescription for oxycodone 5 mg every 6 hours as needed for pain, dispense 10 and Flexeril 5 mg 3 times a day as needed for spasm. I told her to stop taking tizanidine while she was taking Flexeril. She was given printed and verbal instructions and discharged home. Admission/Observation Consideration of admission/observation: Escalation of care including admission/observation considered (No) Lab Data MDM Lab Attestation statement: I reviewed the patient's lab results. Labs: Lab Results 04/13/24 Range/Units 22:06 Urine Color Yellow Urine Appearance Clear Urine pH 6.0 (5.0-9.0) Ur Specific [place] 1.010 (1.005-1.025) Urine Protein Negative (Neg-Trace) mg/dL Urine Glucose (UA) Negative (Negative) mg/dL Urine Ketones Negative (Negative) mg/dL Urine Blood Negative (Negative) Urine Nitrite Negative (Negative) Ur Leukocyte Esterase Moderate (2+) H (Negative) Urine RBC 3-5 H (0-2) /HPF Urine WBC 6-10 H (0-5) /HPF Ur Squamous Epith Cells 0-2 (0-2) /HPF Urine Bacteria None Seen (None Seen) Hyaline Casts 0-2 (0-2) /LPF Radiology Impression Discussion of test interpretation with radiology: I have reviewed the radiologist's reading. Radiologist Impression: 3 views lumbar spine Comparison: None Findings: No acute compression fractures.Subtle degenerative anterolisthesis L4 relative to L5. Degenerative facet arthropathy L4-L5. Disc spaces are maintained. Pedicles and transverse processes intact. Osteitis pubis. Lordotic curvature is preserved. Surgical clips right upper quadrant.Calcified atherosclerotic disease. Sacroiliac joints unremarkable. Impression: 1. No acute compression fractures. Degenerative spondylosis/ listhesis as described. This document has been electronically signed by: Tate Givens MD on 04/13/2024 20:47:13 Dictated By: Tate Givens MD Prescription Management I considered prescription management with: Pain Medication (Oxycodone) and Other (Anti spasmodic: Flexeril) Chronic Conditions Patient?s care impacted by: Other (Atrial fibrillation) Discharge Plan Discharge Clinical Impression: Strain of lumbar region Patient Disposition: Home, Self-Care Instructions: Acute Low Back Pain (ED) Additional Instructions: The x-rays of your lower back revealed mild arthritis of your lower back with no other significant findings. Your urine tests it was negative for an infection. You most likely strain/sprain your lower back and this is causing your pain. Your taking Eliquis for your atrial fibrillation. When you are on blood thinners you can not take medications such as ibuprofen, Advil, Motrin, naproxen, Aleve or aspirin. Take Flexeril (cyclobenzaprine) 5 mg pills, 1 pill every 6-8 hours as needed for pain or spasm. ?This medication will make you sleepy. ?Do not drive or work while taking this medication. While you are taking Flexeril (cyclobenzaprine) stop taking your tizanidine. Take Tylenol (acetaminophen) 500 mg pills, 2 pills every 6 hours as needed for pain. For pain not relieved by ibuprofen or Tylenol take oxycodone 5 mg pills, 1 pill every 6 hours as needed for pain. Do not drive or work while taking this medication since they can cause sleepiness. Oxycodone is a narcotic medication that can be addicting. If you are concerned about addiction you can ask the pharmacist for less pills or do not get this prescription filled. Apply ice to your lower back for 15 minutes 4 to 6 times a day for the next 2-3 days to help reduce the inflammation in your back. Follow-up with your doctor in 2 days. Please return to the emergency department if your symptoms get worse or if you develop any symptoms that are concerning to you. Prescriptions: New oxycodone 5 mg tablet 5 mg PO Q6H PRN (Reason: pain) Qty: 10 0RF Rx Instructions: Partial Fill upon patient request. cyclobenzaprine 5 mg tablet 5 mg PO TID PRN (Reason: muscle spasm or pain) Qty: 14 0RF No Action albuterol sulfate [Proventil HFA] 90 mcg/actuation HFA aerosol inhaler 2 puff inhalation Q4-6H PRN (Reason: shortness of breath or wheezing) Qty: 8.5 0RF tizanidine 4 mg tablet 4 mg PO TID PRN (Reason: Headache) omeprazole 40 mg capsule,delayed release(DR/EC) 40 mg PO DAILY lisinopril 2.5 mg tablet 2.5 mg PO DAILY budesonide-formoterol [Symbicort] 160-4.5 mcg/actuation HFA aerosol inhaler 2 puff INHALATION BID tiotropium bromide [Spiriva with HandiHaler] 18 mcg capsule, w/inhalation device 1 cap inhalation DAILY montelukast 10 mg Tablet 10 mg PO DAILY furosemide 20 mg Tablet 20 mg PO BID ferrous sulfate 324 mg (65 mg iron) Tablet,Delayed Release (Dr/Ec) 324 mg PO DAILY tezepelumab-ekko 210 mg/1.91 mL (110 mg/mL) Syringe 210 mg SUBCUT Q4W prednisone 10 mg tablet See Taper PO DIRECTED Qty: 30 0RF Taper: Prednisone 40 mg daily for 3 Days and 0 Hour 30 mg daily for 3 Days and 0 Hour 20 mg daily for 3 Days and 0 Hour 10 mg daily for 3 Days and 0 Hour Rx Instructions: see taper instructions metoprolol succinate 100 mg tablet extended release 24 hr 100 mg PO DAILY Qty: 10 0RF lorazepam [Ativan] 0.5 mg Tablet 0.5 mg PO BID PRN (Reason: Anxiety) Qty: 6 0RF duloxetine [Cymbalta] 60 mg capsule,delayed release(DR/EC) 60 mg PO DAILY Qty: 10 0RF Eliquis 5 mg tablet 5 mg PO BID Qty: 60 0RF Print Language: Maltese
[2024-04-13 22:16] LABS: Appearance Urine Clear; Color Urine Yellow; Glucose Urine UA Negative (Negative); Leukocyte Esterase Urine Moderate (2+) (Negative); Nitrite Urine Negative (Negative); UMIC TRIGGER UACC YES; Urine Blood Negative (Negative); Urine Ketones Negative (Negative); Urine Protein Negative (Neg-Trace)
[2024-04-13 22:31] LABS: Bacteria Urine None Seen (None Seen); Hyaline Casts Urine 0-2 /LPF (0-2); Squamous Epithelial Cell Urine 0-2 /HPF (0-2); UACC Culture Trigger YES
[2024-04-13 23:06] VITALS: BP 131/72; PULSE 69; RESP 18; TEMP 36.5; O2SAT 100
[2024-04-14] MEDS: Acetaminophen 325 MG TABLET 975 MG PO (01:19)
[2024-04-14] MEDS: oxyCODONE HCl Immed Release 5 MG TABLET 10 MG PO (01:20)
[2024-04-14 01:31] VITALS: BP 112/61; PULSE 70; RESP 20; TEMP 36.6; O2SAT 98
== END 2024-04-14 01:48 | disposition home or self-care (01) ==
PROVIDERS: Registered Nurse Emergency; Emergency Provider Emergency Medicine Emergency Medical Services
DX: S39.012A Strain of muscle, fascia and tendon of lower back, initial encounter (principal); I48.91 Unspecified atrial fibrillation; R10.2 Pelvic and perineal pain; M79.605 Pain in left leg; M79.604 Pain in right leg; X58.XXXA Exposure to other specified factors, initial encounter; Y92.9 Unspecified place or not applicable; Y93.9 Activity, unspecified; Y99.8 Other external cause status; Z79.01 Long term (current) use of anticoagulants; Z79.899 Other long term (current) drug therapy
CPT/HCPCS: 72100; 81001; 87086; 87147; 99283; 99284

== ENCOUNTER → 2024-04-13 18:51 | Outpatient (BNV) | payer MEDICAID, SELFPAY | PROVIDERS: Visit Provider Radiology Diagnostic Radiology | DX: M54.50 Low back pain, unspecified (principal) | CPT/HCPCS: 72100 ==